=== PATIENT | female | born 1965 ===

== ENCOUNTER 2017-01-21 23:09 | Inpatient (IN) | payer MEDICAID ==
[2017-01-21] MEDS ORDERED: Lactated Ringer's 1,000 ML IV ONE (23:40)
[2017-01-21] MEDS ORDERED: Pantoprazole 80 MG in Sodium Chloride 0.9% 100 ML IV STA (23:40)
--- NOTE | 2017-01-21 23:40 | C.PDOC ---
History Of Present Illness Patient is a 51 y/o female who presents to the ED with complaints of abdominal pain and diarrhea. Patient admits to using heroin through IV, using 8 bags yesterday and a few today. Denies fever or chills. No other physical complaints at this time. Time Seen by Provider: 01/21/17 23:40 Chief Complaint (Nursing): Abdominal Pain History Per: Patient History/Exam Limitations: no limitations Current Symptoms Are (Timing): Still Present Context: Other Severity: Moderate Pain Scale Rating Of: 4 Quality Of Discomfort: Dull Associated Symptoms: Diarrhea. denies: Fever, Chills Exacerbating Factors: denies: None Alleviating Factors: denies: None Last Bowel Movement: Today Recent travel outside of the [place]: No Additional History Per: Patient Abnormal Vaginal Bleeding: No Past Medical History Reviewed: Historical Data, Nursing Documentation, Vital Signs Vital Signs: Last Vital Signs Temp 98.7 F 01/21/17 23:20 Pulse 100 H 01/21/17 23:20 Resp 18 01/21/17 23:20 BP 134/87 01/21/17 23:20 Pulse Ox 96 01/22/17 00:25 - Medical History PMH: No Chronic Diseases Surgical History: No Surg Hx Family History: States: No Known Family Hx - Social History Hx Alcohol Use: No Hx Substance Use: Yes Review Of Systems Constitutional: Negative for: Fever, Chills Cardiovascular: Negative for: Chest Pain Respiratory: Negative for: Shortness of Breath Gastrointestinal: Positive for: Abdominal Pain, Diarrhea Genitourinary: Negative for: Dysuria Musculoskeletal: Negative for: Back Pain Skin: Positive for: Rash, Other (track key) Neurological: Negative for: Weakness Psych: Negative for: Anxiety Physical Exam - Physical Exam Appears: Well, Non-toxic Skin: Normal Color, Warm, Dry, Other (track key) Head: Normacephalic Eye(s): bilateral: Normal Inspection Oral Mucosa: Moist Neck: Supple Chest: Symmetrical Cardiovascular: Rhythm Regular, No Murmur Respiratory: Normal Breath Sounds, No Rales, No Rhonchi, No Wheezing Gastrointestinal/Abdominal: Soft, Tenderness (mild), No Guarding, No Rebound Rectal: Other (little to no stool in rectal vault; some trace of BRB in rectum) Back: No CVA Tenderness Extremity: No Tenderness Extremity: Bilateral: Atraumatic Pulses: Left Dorsalis Pedis: Normal, Right Dorsalis Pedis: Normal Neurological/Psych: Oriented x3, Normal Speech, Normal Cognition Gait: Steady ED Course And Treatment - Laboratory Results Result Diagrams: 01/21/17 23:58 01/21/17 23:58 O2 Sat by Pulse Oximetry: 96 Medical Decision Making Medical Decision Making: Plan: * blood work * UA * IV fluids, Protonix Disposition Discussed With : Rosanne Alexis Comment: accepted the pt on his service and took over the care at 12:48 AM Doctor Will See Patient In The: Hospital Counseled Patient/Family Regarding: Studies Performed, Diagnosis - Disposition Disposition: HOSPITALIZED Disposition Time: 23:40 Condition: FAIR Forms: [facility] (Irish) - POA Present On Arrival: Poor Glycemic Control - Clinical Impression Clinical Impression: Abdominal pain, Nausea, Diarrhea, Lower GI bleed - Scribe Statement The provider has reviewed the documentation as recorded by the Scribe Toya Lawson All medical record entries made by the Scribe were at my direction and personally dictated by me. I have reviewed the chart and agree that the record accurately reflects my personal performance of the history, physical exam, medical decision making, and the department course for this patient. I have also personally directed, reviewed, and agree with the discharge instructions and disposition. Decision To Admit - Pt Status Changed To: Hospital Disposition Of: Inpatient - Admit Certification Admit to Inpatient:: After my assessment, the patient will require hospitalization for at least two midnights. This is because of the severity of symptoms shown, intensity of services needed, and/or the medical risk in this patient being treated as an outpatient. - InPatient: Physician Admission Certification:: After my assessment, the patient will require hospitalization for at least two midnights. This is because of the severity of symptoms shown, intensity of services needed, and/or the medical risk in this patient being treated as an outpatient. - . Bed Request Type: Regular Admitting Physician: Rosanne Alexis Patient Diagnosis: Abdominal pain, Nausea, Diarrhea, Lower GI bleed, Drug abuse
[2017-01-22 00:02] LABS: BASO % 0.6 % (0.0-2.0); EOS # 0.1 K/uL (0.0-0.7); EOS % 1.6 % (0.0-4.0); LYMPH # 2.3 K/uL (1.0-4.3); LYMPH % 35.3 % (20.0-40.0); MEAN CELL VOLUME 80.1 fL (81.0-99.0); MEAN CORPUSCULAR HEMOGLOBIN 25.7 pg (27.0-31.0); MEAN CORPUSCULAR HGB CONC 32.1 g/dL (33.0-37.0); MEAN PLATELET VOLUME 9.2 fL (7.2-11.7); MONO # 0.3 K/uL (0.0-0.8); MONO % 5.3 % (0.0-10.0); RED CELL DISTRIBUTION WIDTH 15.7 % (11.5-14.5); WHITE BLOOD COUNT 6.6 K/uL (4.8-10.8)
[2017-01-22 00:08] LABS: RBC URINE 4 /hpf (0-3); URINE BACTERIA FEW (<OCC); URINE BILIRUBIN NEGATIVE (NEGATIVE); URINE BLOOD 2+ (NEGATIVE); URINE CALCIUM OXALATE CRYSTALS MANY /hpf (<OCC); URINE COLOR Yellow (YELLOW); URINE GLUCOSE (UA) NORMAL (Normal); URINE KETONE NEGATIVE (NEGATIVE); URINE LEUKOCYTE ESTERASE 3+ Leu/uL (Negative); URINE PROTEIN 1+ mg/dL (NEGATIVE); WBC URINE 22 /hpf (0-5)
[2017-01-22 00:12] LABS: INR 1.1
[2017-01-22 00:28] LABS: ALKALINE PHOSPHATASE 103 U/L (38-126); ALT/SGPT 61 U/L (9-52); AST/SGOT 46 U/L (14-36); BILIRUBIN,TOTAL 0.3 mg/dL (0.2-1.3); BLOOD UREA NITROGEN 18 mg/dL (7-17); CALCIUM 8.5 mg/dl (8.6-10.4); CARBON DIOXIDE 26 mmol/L (22-30); CHLORIDE 103 mmol/L (98-107); GFR AFRICAN-AMERICAN > 60; GLUCOSE,RANDOM 119 mg/dL (65-105); POTASSIUM 3.4 mmol/L (3.6-5.2); SODIUM 134 mmol/L (132-148); TOTAL PROTEIN 8.6 g/dL (6.3-8.3)
[2017-01-22 00:31] LABS: ALB/GLOB RATIO 0.8 (1.0-2.1)
[2017-01-22] MEDS: Dextrose 5%/0.45% NS 1,000 ML IV SCH ×2 (01:05→12:00)
[2017-01-22 04:43] VITALS: O2SAT 98
[2017-01-22 06:20] LABS: BASO % 0.6 % (0.0-2.0); EOS # 0.1 K/uL (0.0-0.7); EOS % 2.2 % (0.0-4.0); HEMATOCRIT 37.2 % (34.0-47.0); LYMPH # 1.7 K/uL (1.0-4.3); LYMPH % 31.6 % (20.0-40.0); MEAN CELL VOLUME 80.6 fL (81.0-99.0); MEAN CORPUSCULAR HEMOGLOBIN 26.1 pg (27.0-31.0); MEAN CORPUSCULAR HGB CONC 32.3 g/dL (33.0-37.0); MEAN PLATELET VOLUME 9.4 fL (7.2-11.7); MONO # 0.4 K/uL (0.0-0.8); MONO % 8.4 % (0.0-10.0); RED CELL DISTRIBUTION WIDTH 15.1 % (11.5-14.5); WHITE BLOOD COUNT 5.4 K/uL (4.8-10.8)
[2017-01-22 06:34] LABS: ALKALINE PHOSPHATASE 84 U/L (38-126); ALT/SGPT 60 U/L (9-52); AST/SGOT 40 U/L (14-36); BILIRUBIN,TOTAL 0.6 mg/dL (0.2-1.3); BLOOD UREA NITROGEN 13 mg/dL (7-17); CARBON DIOXIDE 28 mmol/L (22-30); CHLORIDE 103 mmol/L (98-107); GFR AFRICAN-AMERICAN > 60; GLUCOSE,RANDOM 86 mg/dL (65-105); POTASSIUM 3.3 mmol/L (3.6-5.2); SODIUM 140 mmol/L (132-148); TOTAL PROTEIN 6.6 g/dL (6.3-8.3)
[2017-01-22] MEDS ORDERED: Potassium Chloride 20 mEq ER Tab PO STA (06:38)
[2017-01-22] MEDS ORDERED: Potassium Chloride 20 mEq ER Tab PO ONE (06:42)
[2017-01-22] MEDS ORDERED: Potassium Chloride 20 mEq ER Tab PO SCH (10:00)
[2017-01-22] MEDS ORDERED: Folic Acid 1 MG, Thiamine 100 MG, Multivitamin (MVI) 10 ML in Dextrose 5% In Water 1,00... IV SCH (12:00)
[2017-01-22] MEDS ORDERED: metroNIDAZOLE IV 500 mg/100 ml 500 MG/100 ML BAG ONE ×2 (12:05→18:35)
[2017-01-22] MEDS: metroNIDAZOLE IV 500 mg/100 ml 500 MG/100 ML BAG IVPB SCH ×2 (12:11→18:29)
[2017-01-22 15:57] LABS: BASO % 0.6 % (0.0-2.0); EOS # 0.1 K/uL (0.0-0.7); EOS % 1.1 % (0.0-4.0); HEMATOCRIT 38.1 % (34.0-47.0); LYMPH # 2.1 K/uL (1.0-4.3); LYMPH % 45.7 % (20.0-40.0); MEAN CELL VOLUME 80.7 fL (81.0-99.0); MEAN CORPUSCULAR HEMOGLOBIN 25.5 pg (27.0-31.0); MEAN CORPUSCULAR HGB CONC 31.6 g/dL (33.0-37.0); MEAN PLATELET VOLUME 8.8 fL (7.2-11.7); MONO # 0.4 K/uL (0.0-0.8); MONO % 8.9 % (0.0-10.0); RED CELL DISTRIBUTION WIDTH 15.7 % (11.5-14.5); WHITE BLOOD COUNT 4.6 K/uL (4.8-10.8)
--- NOTE | 2017-01-22 16:05 | CP.PCM.CON ---
<Tia Lr - Last Filed: 01/22/17 17:07> History of Present Illness - History of Present Illness History of Present Illness: Gastroenterology Fellow/PGY5 Consult Note 51 year old female with history of Polysubstance abuse presenting with abdominal pain and diarrhea. Patient notes onset of severe, progressive mid- abdominal pain for the last four days. She notes over ten episodes of watery diarrhea. She noted bright red blood per rectum with wiping after each episode of diarrhea. Admits to eating out at chicken restaurants prior to onset of pain and diarrhea and she may have exposed to food poisoning. Today he notes resolved abdominal pain, diarrhea, and bright red blood per rectum. Denies nausea, vomiting, hematemesis, heartburn, acid reflux, indigestion, bloating, constipation, melena, or hematochezia. Admits to unintentional 15 pound weight loss in the last two months that she relates to minimal nutrition intake with daily heroin use. No prior EGD or colonoscopy. Family- denies stomach cancer, colon cancer Social 10 pack year smoking history, 1-8 packs of heroin daily x 2 years, denies alcohol use Surgery- none Review of Systems - Review of Systems Review of Systems: 12-point review of systems negative except for as above Past Patient History - Past Medical History & Family History Past Medical History?: Yes - Past Social History Smoking Status: Heavy Smoker > 10 Cigarettes Daily - CARDIAC Hx Cardiac Disorders: No - PULMONARY Hx Respiratory Disorders: No - NEUROLOGICAL Hx Neurological Disorder: No - HEENT Hx HEENT Problems: No - RENAL Hx Chronic Kidney Disease: No - ENDOCRINE/METABOLIC Hx Endocrine Disorders: No - HEMATOLOGICAL/ONCOLOGICAL Hx Blood Disorders: No - INTEGUMENTARY Hx Dermatological Problems: No - MUSCULOSKELETAL/RHEUMATOLOGICAL Hx Musculoskeletal Disorders: No Hx Falls: No - GASTROINTESTINAL Hx Gastrointestinal Disorders: No - GENITOURINARY/GYNECOLOGICAL Hx Genitourinary Disorders: No - PSYCHIATRIC Hx Psychophysiologic Disorder: Yes Hx Substance Use: Yes - SURGICAL HISTORY Hx Surgeries: No - ANESTHESIA Hx Anesthesia: No Meds Allergies/Adverse Reactions: Allergies Allergy/AdvReac Type Severity Reaction Status Date / Time No Known Allergies Allergy Unverified 01/21/17 23:24 - Medications Medications: Current Medications Clonidine HCl (Catapres) 0.1 mg PO Q8H ANTONI Last Admin: 01/22/17 12:10 Dose: 0.1 mg Metronidazole (Flagyl) 500 mg in 100 mls @ 100 mls/hr IVPB BID [facility] Last Admin: 01/22/17 12:11 Dose: 100 mls/hr Folic Acid 1 mg/ Thiamine HCl 100 mg/ Multivitamins/Vitamin C 10 ml/ Dextrose 1 ,011.2 mls @ 75 mls/hr IV .[id number] [facility] Last Admin: 01/22/17 13:56 Dose: 75 mls/hr Pantoprazole Sodium (Protonix Inj) 40 mg IVP DAILY [facility] Last Admin: 01/22/17 12:10 Dose: 40 mg Physical Exam - Constitutional Appears: Non-toxic, No Acute Distress - Head Exam Head Exam: ATRAUMATIC, NORMOCEPHALIC - Eye Exam Eye Exam: EOMI, PERRL Pupil Exam: PERRL. absent: Miosis, Mydriatic - ENT Exam ENT Exam: Mucous Membranes Moist, Normal Oropharynx - Neck Exam Neck exam: Positive for: Full Rom, Normal Inspection - Respiratory Exam Respiratory Exam: Clear to Auscultation Bilateral. absent: Rales, Rhonchi, Wheezes - Cardiovascular Exam Cardiovascular Exam: RRR, +S1, +S2. absent: Gallop, Rubs - GI/Abdominal Exam GI & Abdominal Exam: Normal Bowel Sounds, Soft. absent: Distended, Firm, Guarding, Organomegaly, Rebound, Rigid, Tenderness - Rectal Exam Rectal Exam: NORMAL INSPECTION. absent: Black Stool, Bloody Stool, Hemorrhoids , Fecal Impaction Additional comments: scant brown feces in rectal vault - Extremities Exam Extremities exam: Positive for: normal inspection. Negative for: pedal edema - Neurological Exam Neurological exam: Alert - Psychiatric Exam Psychiatric exam: Normal Affect, Normal Mood - Skin Skin Exam: Dry, Intact, Normal Color, Warm Results - Vital Signs Recent Vital Signs: Last Vital Signs Temp 98 F 01/22/17 14:53 Pulse 79 01/22/17 14:53 Resp 18 01/22/17 14:53 BP 129/80 01/22/17 14:53 Pulse Ox 98 01/22/17 14:53 - Labs Result Diagrams: 01/22/17 15:52 01/22/17 06:17 Labs: Laboratory Results - last 24 hr 01/21/17 01/21/17 01/21/17 23:58 23:58 23:58 WBC 6.6 RBC 4.86 Hgb 12.5 Hct 39.0 MCV 80.1 L MCH 25.7 L MCHC 32.1 L RDW 15.7 H Plt Count 216 MPV 9.2 Neut % (Auto) 57.2 Lymph % (Auto) 35.3 [place] % (Auto) 5.3 Eos % (Auto) 1.6 Baso % (Auto) 0.6 Neut # 3.7 Lymph # 2.3 Grainger # 0.3 Eos # 0.1 Baso # 0.0 PT 12.2 INR 1.1 APTT 35 H Sodium Potassium Chloride Carbon Dioxide Anion Gap BUN Creatinine Est GFR ( Amer) Est GFR (Non-Af Amer) Random Glucose Calcium Total Bilirubin AST ALT Alkaline Phosphatase Total Protein Albumin Globulin Albumin/Globulin Ratio Urine Color Yellow Urine Clarity Hazy Urine pH 5.0 Ur Specific [place] 1.027 Urine Protein 1+ H Urine Glucose (UA) Normal Urine Ketones Negative Urine Blood 2+ H Urine Nitrate Negative Urine Bilirubin Negative Urine Urobilinogen 2.0 H Ur Leukocyte Esterase 3+ H Urine WBC (Auto) 22 H Urine RBC (Auto) 4 H Ur Squamous Epith Cells 6 H Calcium Oxalate Crystal Many H Urine Bacteria Few H Urine HCG, Qual Negative Stool Occult Blood Urine Opiates Screen Urine Methadone Screen Ur Barbiturates Screen Ur Phencyclidine Scrn Ur Amphetamines Screen U Benzodiazepines Scrn U Oth Cocaine Metabols U Cannabinoids Screen Blood Type Antibody Screen 01/21/17 01/21/17 01/21/17 23:58 23:58 23:58 WBC RBC Hgb Hct MCV MCH MCHC RDW Plt Count MPV Neut % (Auto) Lymph % (Auto) [place] % (Auto) Eos % (Auto) Baso % (Auto) Neut # Lymph # [place] # Eos # Baso # PT INR APTT Sodium 134 Potassium 3.4 L Chloride 103 Carbon Dioxide 26 Anion Gap 9 L BUN 18 H Creatinine 0.8 Est GFR ( Amer) > 60 Est GFR (Non-Af Amer) > 60 Random Glucose 119 H Calcium 8.5 L Total Bilirubin 0.3 AST 46 H ALT 61 H Alkaline Phosphatase 103 Total Protein 8.6 H Albumin 3.8 Globulin 4.8 H Albumin/Globulin Ratio 0.8 L Urine Color Urine Clarity Urine pH Ur Specific [place] Urine Protein Urine Glucose (UA) Urine Ketones Urine Blood Urine Nitrate Urine Bilirubin Urine Urobilinogen Ur Leukocyte Esterase Urine WBC (Auto) Urine RBC (Auto) Ur Squamous Epith Cells Calcium Oxalate Crystal Urine Bacteria Urine HCG, Qual Stool Occult Blood Urine Opiates Screen Positive H Urine Methadone Screen Negative Ur Barbiturates Screen Negative Ur Phencyclidine Scrn Negative Ur Amphetamines Screen Negative U Benzodiazepines Scrn Positive U Oth Cocaine Metabols Positive H U Cannabinoids Screen Negative Blood Type O POSITIVE Antibody Screen Negative 01/22/17 01/22/17 01/22/17 00:22 06:17 06:17 WBC 5.4 RBC 4.62 Hgb 12.0 Hct 37.2 MCV 80.6 L MCH 26.1 L MCHC 32.3 L RDW 15.1 H Plt Count 193 MPV 9.4 Neut % (Auto) 57.2 Lymph % (Auto) 31.6 [place] % (Auto) 8.4 Eos % (Auto) 2.2 Baso % (Auto) 0.6 Neut # 3.1 Lymph # 1.7 Grainger # 0.4 Eos # 0.1 Baso # 0.0 PT INR APTT Sodium 140 Potassium 3.3 L Chloride 103 Carbon Dioxide 28 Anion Gap 13 BUN 13 Creatinine 0.6 L Est GFR ( Amer) > 60 Est GFR (Non-Af Amer) > 60 Random Glucose 86 Calcium 8.0 L Total Bilirubin 0.6 AST 40 H ALT 60 H Alkaline Phosphatase 84 Total Protein 6.6 Albumin 3.3 L Globulin 3.3 Albumin/Globulin Ratio 1.0 Urine Color Urine Clarity Urine pH Ur Specific [place] Urine Protein Urine Glucose (UA) Urine Ketones Urine Blood Urine Nitrate Urine Bilirubin Urine Urobilinogen Ur Leukocyte Esterase Urine WBC (Auto) Urine RBC (Auto) Ur Squamous Epith Cells Calcium Oxalate Crystal Urine Bacteria Urine HCG, Qual Stool Occult Blood Positive H Urine Opiates Screen Urine Methadone Screen Ur Barbiturates Screen Ur Phencyclidine Scrn Ur Amphetamines Screen U Benzodiazepines Scrn U Oth Cocaine Metabols U Cannabinoids Screen Blood Type Antibody Screen 01/22/17 15:52 WBC 4.6 L RBC 4.71 Hgb 12.0 Hct 38.1 MCV 80.7 L MCH 25.5 L MCHC 31.6 L RDW 15.7 H Plt Count 212 MPV 8.8 Neut % (Auto) 43.7 L Lymph % (Auto) 45.7 H [place] % (Auto) 8.9 Eos % (Auto) 1.1 Baso % (Auto) 0.6 Neut # 2.0 Lymph # 2.1 Grainger # 0.4 Eos # 0.1 Baso # 0.0 PT INR APTT Sodium Potassium Chloride Carbon Dioxide Anion Gap BUN Creatinine Est GFR ( Amer) Est GFR (Non-Af Amer) Random Glucose Calcium Total Bilirubin AST ALT Alkaline Phosphatase Total Protein Albumin Globulin Albumin/Globulin Ratio Urine Color Urine Clarity Urine pH Ur Specific [place] Urine Protein Urine Glucose (UA) Urine Ketones Urine Blood Urine Nitrate Urine Bilirubin Urine Urobilinogen Ur Leukocyte Esterase Urine WBC (Auto) Urine RBC (Auto) Ur Squamous Epith Cells Calcium Oxalate Crystal Urine Bacteria Urine HCG, Qual Stool Occult Blood Urine Opiates Screen Urine Methadone Screen Ur Barbiturates Screen Ur Phencyclidine Scrn Ur Amphetamines Screen U Benzodiazepines Scrn U Oth Cocaine Metabols U Cannabinoids Screen Blood Type Antibody Screen Assessment & Plan - Assessment and Plan (Free Text) Assessment: 51 year old female with history of Polysubstance abuse presenting with abdominal pain and diarrhea. Active treatment of resolved abdominal pain and diarrhea likely 2/2 gastroenteritis. No prior EGD or colonoscopy. Plan: >likely 2/2 food poisoning >resolved symptoms >advance to regular diet >counselled on outpatient GI follow up for colonoscopy given BRBPR and unintentional weight loss for CRC screening <Kwan Ocampo - Last Filed: 01/22/17 19:01> Meds - Medications Medications: Current Medications Clonidine HCl (Catapres) 0.1 mg PO Q8H [facility] Last Admin: 01/22/17 12:10 Dose: 0.1 mg Folic Acid 1 mg/ Thiamine HCl 100 mg/ Multivitamins/Vitamin C 10 ml/ Dextrose 1 ,011.2 mls @ 75 mls/hr IV .[id number] [facility] Last Admin: 01/22/17 13:56 Dose: 75 mls/hr Metronidazole (Flagyl) 500 mg in 100 mls @ 100 mls/hr IVPB Q12H [facility] Pantoprazole Sodium (Protonix Inj) 40 mg IVP DAILY [facility] Last Admin: 01/22/17 12:10 Dose: 40 mg Results - Vital Signs Recent Vital Signs: Last Vital Signs Temp 98 F 01/22/17 14:53 Pulse 79 01/22/17 14:53 Resp 18 01/22/17 14:53 BP 129/80 01/22/17 14:53 Pulse Ox 98 11/30/17 14:53 - Labs Result Diagrams: 01/22/17 15:52 01/22/17 06:17 Labs: Laboratory Results - last 24 hr 01/21/17 01/21/17 01/21/17 23:58 23:58 23:58 WBC 6.6 RBC 4.86 Hgb 12.5 Hct 39.0 MCV 80.1 L MCH 25.7 L MCHC 32.1 L RDW 15.7 H Plt Count 216 MPV 9.2 Neut % (Auto) 57.2 Lymph % (Auto) 35.3 [place] % (Auto) 5.3 Eos % (Auto) 1.6 Baso % (Auto) 0.6 Neut # 3.7 Lymph # 2.3 [place] # 0.3 Eos # 0.1 Baso # 0.0 PT 12.2 INR 1.1 APTT 35 H Sodium Potassium Chloride Carbon Dioxide Anion Gap BUN Creatinine Est GFR ( Amer) Est GFR (Non-Af Amer) Random Glucose Calcium Total Bilirubin AST ALT Alkaline Phosphatase Total Protein Albumin Globulin Albumin/Globulin Ratio Urine Color Yellow Urine Clarity Hazy Urine pH 5.0 Ur Specific [place] 1.027 Urine Protein 1+ H Urine Glucose (UA) Normal Urine Ketones Negative Urine Blood 2+ H Urine Nitrate Negative Urine Bilirubin Negative Urine Urobilinogen 2.0 H Ur Leukocyte Esterase 3+ H Urine WBC (Auto) 22 H Urine RBC (Auto) 4 H Ur Squamous Epith Cells 6 H Calcium Oxalate Crystal Many H Urine Bacteria Few H Urine HCG, Qual Negative Stool Occult Blood Urine Opiates Screen Urine Methadone Screen Ur Barbiturates Screen Ur Phencyclidine Scrn Ur Amphetamines Screen U Benzodiazepines Scrn U Oth Cocaine Metabols U Cannabinoids Screen Blood Type Antibody Screen 01/21/17 01/21/17 01/21/17 23:58 23:58 23:58 WBC RBC Hgb Hct MCV MCH MCHC RDW Plt Count MPV Neut % (Auto) Lymph % (Auto) [place] % (Auto) Eos % (Auto) Baso % (Auto) Neut # Lymph # [place] # Eos # Baso # PT INR APTT Sodium 134 Potassium 3.4 L Chloride 103 Carbon Dioxide 26 Anion Gap 9 L BUN 18 H Creatinine 0.8 Est GFR ( Amer) > 60 Est GFR (Non-Af Amer) > 60 Random Glucose 119 H Calcium 8.5 L Total Bilirubin 0.3 AST 46 H ALT 61 H Alkaline Phosphatase 103 Total Protein 8.6 H Albumin 3.8 Globulin 4.8 H Albumin/Globulin Ratio 0.8 L Urine Color Urine Clarity Urine pH Ur Specific [place] Urine Protein Urine Glucose (UA) Urine Ketones Urine Blood Urine Nitrate Urine Bilirubin Urine Urobilinogen Ur Leukocyte Esterase Urine WBC (Auto) Urine RBC (Auto) Ur Squamous Epith Cells Calcium Oxalate Crystal Urine Bacteria Urine HCG, Qual Stool Occult Blood Urine Opiates Screen Positive H Urine Methadone Screen Negative Ur Barbiturates Screen Negative Ur Phencyclidine Scrn Negative Ur Amphetamines Screen Negative U Benzodiazepines Scrn Positive U Oth Cocaine Metabols Positive H U Cannabinoids Screen Negative Blood Type O POSITIVE Antibody Screen Negative 01/22/17 01/22/17 01/22/17 00:22 06:17 06:17 WBC 5.4 RBC 4.62 Hgb 12.0 Hct 37.2 MCV 80.6 L MCH 26.1 L MCHC 32.3 L RDW 15.1 H Plt Count 193 MPV 9.4 Neut % (Auto) 57.2 Lymph % (Auto) 31.6 [place] % (Auto) 8.4 Eos % (Auto) 2.2 Baso % (Auto) 0.6 Neut # 3.1 Lymph # 1.7 [place] # 0.4 Eos # 0.1 Baso # 0.0 PT INR APTT Sodium 140 Potassium 3.3 L Chloride 103 Carbon Dioxide 28 Anion Gap 13 BUN 13 Creatinine 0.6 L Est GFR ( Amer) > 60 Est GFR (Non-Af Amer) > 60 Random Glucose 86 Calcium 8.0 L Total Bilirubin 0.6 AST 40 H ALT 60 H Alkaline Phosphatase 84 Total Protein 6.6 Albumin 3.3 L Globulin 3.3 Albumin/Globulin Ratio 1.0 Urine Color Urine Clarity Urine pH Ur Specific [place] Urine Protein Urine Glucose (UA) Urine Ketones Urine Blood Urine Nitrate Urine Bilirubin Urine Urobilinogen Ur Leukocyte Esterase Urine WBC (Auto) Urine RBC (Auto) Ur Squamous Epith Cells Calcium Oxalate Crystal Urine Bacteria Urine HCG, Qual Stool Occult Blood Positive H Urine Opiates Screen Urine Methadone Screen Ur Barbiturates Screen Ur Phencyclidine Scrn Ur Amphetamines Screen U Benzodiazepines Scrn U Oth Cocaine Metabols U Cannabinoids Screen Blood Type Antibody Screen 01/22/17 15:52 WBC 4.6 L RBC 4.71 Hgb 12.0 Hct 38.1 MCV 80.7 L MCH 25.5 L MCHC 31.6 L RDW 15.7 H Plt Count 212 MPV 8.8 Neut % (Auto) 43.7 L Lymph % (Auto) 45.7 H [place] % (Auto) 8.9 Eos % (Auto) 1.1 Baso % (Auto) 0.6 Neut # 2.0 Lymph # 2.1 [place] # 0.4 Eos # 0.1 Baso # 0.0 PT INR APTT Sodium Potassium Chloride Carbon Dioxide Anion Gap BUN Creatinine Est GFR ( Amer) Est GFR (Non-Af Amer) Random Glucose Calcium Total Bilirubin AST ALT Alkaline Phosphatase Total Protein Albumin Globulin Albumin/Globulin Ratio Urine Color Urine Clarity Urine pH Ur Specific [place] Urine Protein Urine Glucose (UA) Urine Ketones Urine Blood Urine Nitrate Urine Bilirubin Urine Urobilinogen Ur Leukocyte Esterase Urine WBC (Auto) Urine RBC (Auto) Ur Squamous Epith Cells Calcium Oxalate Crystal Urine Bacteria Urine HCG, Qual Stool Occult Blood Urine Opiates Screen Urine Methadone Screen Ur Barbiturates Screen Ur Phencyclidine Scrn Ur Amphetamines Screen U Benzodiazepines Scrn U Oth Cocaine Metabols U Cannabinoids Screen Blood Type Antibody Screen Attending/Attestation - Attestation I have personally seen and examined this patient.: Yes I have fully participated in the care of the patient.: Yes I have reviewed all pertinent clinical information: Yes Notes (Text): 01/22/17 18:55 I have seen and examined patient with GI fellow. Agree with above documentation with the following additions. In brief, this is a 51 year old female with history of ongoing polysubstance abuse with recent heroin use who presents to hospital with complaint of abdominal pain and diarrhea over the past 4 days. She describes sharp epigastric, 4/10 intensity pain that was associated with multiple episodes of diarrhea which was initially watery and had developed rectal bleeding yesterday. Her symptoms began following consumption of chicken at restaurant. She otherwise denies nausea, vomiting, fever/chills, or change in bowel habits. She does report recent 15 pound unintentional weight loss in setting of decreased appetite. No prior endoscopic evaluation. Polysubstance abuse Abdominal pain, diarrhea - resolved Transaminitis - likely mutifactorial in setting of substance abuse - Patient tolerated PO diet this evening without any difficulty - H/H stable, no evidence of blood in rectal vault on rectal exam - Symptoms consistent with likely resolving gastroenteritis, no clear indication for antibiotic therapy, can likely discontinue - Obtain viral hepatitis panel, continue to monitor LFTs - Suggest further outpatient GI follow up with colonoscopy - Substance abuse cessation counseling - No planned GI intervention, will sign off case. Please reconsult as necessary , thank you.
--- NOTE | 2017-01-22 19:01 | CP.PCM.HP ---
Past Patient History - Past Medical History & Family History Past Medical History?: Yes - Past Social History Smoking Status: Heavy Smoker > 10 Cigarettes Daily - CARDIAC Hx Cardiac Disorders: No - PULMONARY Hx Respiratory Disorders: No - NEUROLOGICAL Hx Neurological Disorder: No - HEENT Hx HEENT Problems: No - RENAL Hx Chronic Kidney Disease: No - ENDOCRINE/METABOLIC Hx Endocrine Disorders: No - HEMATOLOGICAL/ONCOLOGICAL Hx Blood Disorders: No - INTEGUMENTARY Hx Dermatological Problems: No - MUSCULOSKELETAL/RHEUMATOLOGICAL Hx Musculoskeletal Disorders: No Hx Falls: No - GASTROINTESTINAL Hx Gastrointestinal Disorders: No - GENITOURINARY/GYNECOLOGICAL Hx Genitourinary Disorders: No - PSYCHIATRIC Hx Psychophysiologic Disorder: Yes Hx Substance Use: Yes - SURGICAL HISTORY Hx Surgeries: No - ANESTHESIA Hx Anesthesia: No Meds Allergies/Adverse Reactions: Allergies Allergy/AdvReac Type Severity Reaction Status Date / Time No Known Allergies Allergy Unverified 01/21/17 23:24 Physical Exam - Constitutional Appears: Well - Head Exam Head Exam: ATRAUMATIC, NORMAL INSPECTION, NORMOCEPHALIC - Eye Exam Eye Exam: EOMI, Normal appearance, PERRL Pupil Exam: NORMAL ACCOMODATION, PERRL - ENT Exam ENT Exam: Mucous Membranes Moist, Normal Exam - Neck Exam Neck exam: Positive for: Normal Inspection - Respiratory Exam Respiratory Exam: Decreased Breath Sounds - Cardiovascular Exam Cardiovascular Exam: REGULAR RHYTHM, +S1, +S2 - GI/Abdominal Exam GI & Abdominal Exam: Diminished Bowel Sounds, Soft - Rectal Exam Rectal Exam: Deferred Results - Vital Signs Recent Vital Signs: Last Vital Signs Temp 98 F 01/22/17 14:53 Pulse 79 01/22/17 14:53 Resp 18 01/22/17 14:53 BP 129/80 01/22/17 14:53 Pulse Ox 98 01/22/17 14:53 - Labs Result Diagrams: 01/22/17 15:52 01/22/17 06:17 Labs: Laboratory Results - last 24 hr 01/21/17 01/21/17 01/21/17 23:58 23:58 23:58 WBC 6.6 RBC 4.86 Hgb 12.5 Hct 39.0 MCV 80.1 L MCH 25.7 L MCHC 32.1 L RDW 15.7 H Plt Count 216 MPV 9.2 Neut % (Auto) 57.2 Lymph % (Auto) 35.3 [place] % (Auto) 5.3 Eos % (Auto) 1.6 Baso % (Auto) 0.6 Neut # 3.7 Lymph # 2.3 [place] # 0.3 Eos # 0.1 Baso # 0.0 PT 12.2 INR 1.1 APTT 35 H Sodium Potassium Chloride Carbon Dioxide Anion Gap BUN Creatinine Est GFR ( Amer) Est GFR (Non-Af Amer) Random Glucose Calcium Total Bilirubin AST ALT Alkaline Phosphatase Total Protein Albumin Globulin Albumin/Globulin Ratio Urine Color Yellow Urine Clarity Hazy Urine pH 5.0 Ur Specific [place] 1.027 Urine Protein 1+ H Urine Glucose (UA) Normal Urine Ketones Negative Urine Blood 2+ H Urine Nitrate Negative Urine Bilirubin Negative Urine Urobilinogen 2.0 H Ur Leukocyte Esterase 3+ H Urine WBC (Auto) 22 H Urine RBC (Auto) 4 H Ur Squamous Epith Cells 6 H Calcium Oxalate Crystal Many H Urine Bacteria Few H Urine HCG, Qual Negative Stool Occult Blood Urine Opiates Screen Urine Methadone Screen Ur Barbiturates Screen Ur Phencyclidine Scrn Ur Amphetamines Screen U Benzodiazepines Scrn U Oth Cocaine Metabols U Cannabinoids Screen Blood Type Antibody Screen 01/21/17 01/21/17 01/21/17 23:58 23:58 23:58 WBC RBC Hgb Hct MCV MCH MCHC RDW Plt Count MPV Neut % (Auto) Lymph % (Auto) [place] % (Auto) Eos % (Auto) Baso % (Auto) Neut # Lymph # [place] # Eos # Baso # PT INR APTT Sodium 134 Potassium 3.4 L Chloride 103 Carbon Dioxide 26 Anion Gap 9 L BUN 18 H Creatinine 0.8 Est GFR ( Amer) > 60 Est GFR (Non-Af Amer) > 60 Random Glucose 119 H Calcium 8.5 L Total Bilirubin 0.3 AST 46 H ALT 61 H Alkaline Phosphatase 103 Total Protein 8.6 H Albumin 3.8 Globulin 4.8 H Albumin/Globulin Ratio 0.8 L Urine Color Urine Clarity Urine pH Ur Specific [place] Urine Protein Urine Glucose (UA) Urine Ketones Urine Blood Urine Nitrate Urine Bilirubin Urine Urobilinogen Ur Leukocyte Esterase Urine WBC (Auto) Urine RBC (Auto) Ur Squamous Epith Cells Calcium Oxalate Crystal Urine Bacteria Urine HCG, Qual Stool Occult Blood Urine Opiates Screen Positive H Urine Methadone Screen Negative Ur Barbiturates Screen Negative Ur Phencyclidine Scrn Negative Ur Amphetamines Screen Negative U Benzodiazepines Scrn Positive U Oth Cocaine Metabols Positive H U Cannabinoids Screen Negative Blood Type O POSITIVE Antibody Screen Negative 01/22/17 01/22/17 01/22/17 00:22 06:17 06:17 WBC 5.4 RBC 4.62 Hgb 12.0 Hct 37.2 MCV 80.6 L MCH 26.1 L MCHC 32.3 L RDW 15.1 H Plt Count 193 MPV 9.4 Neut % (Auto) 57.2 Lymph % (Auto) 31.6 [place] % (Auto) 8.4 Eos % (Auto) 2.2 Baso % (Auto) 0.6 Neut # 3.1 Lymph # 1.7 [place] # 0.4 Eos # 0.1 Baso # 0.0 PT INR APTT Sodium 140 Potassium 3.3 L Chloride 103 Carbon Dioxide 28 Anion Gap 13 BUN 13 Creatinine 0.6 L Est GFR ( Amer) > 60 Est GFR (Non-Af Amer) > 60 Random Glucose 86 Calcium 8.0 L Total Bilirubin 0.6 AST 40 H ALT 60 H Alkaline Phosphatase 84 Total Protein 6.6 Albumin 3.3 L Globulin 3.3 Albumin/Globulin Ratio 1.0 Urine Color Urine Clarity Urine pH Ur Specific [place] Urine Protein Urine Glucose (UA) Urine Ketones Urine Blood Urine Nitrate Urine Bilirubin Urine Urobilinogen Ur Leukocyte Esterase Urine WBC (Auto) Urine RBC (Auto) Ur Squamous Epith Cells Calcium Oxalate Crystal Urine Bacteria Urine HCG, Qual Stool Occult Blood Positive H Urine Opiates Screen Urine Methadone Screen Ur Barbiturates Screen Ur Phencyclidine Scrn Ur Amphetamines Screen U Benzodiazepines Scrn U Oth Cocaine Metabols U Cannabinoids Screen Blood Type Antibody Screen 01/22/17 15:52 WBC 4.6 L RBC 4.71 Hgb 12.0 Hct 38.1 MCV 80.7 L MCH 25.5 L MCHC 31.6 L RDW 15.7 H Plt Count 212 MPV 8.8 Neut % (Auto) 43.7 L Lymph % (Auto) 45.7 H [place] % (Auto) 8.9 Eos % (Auto) 1.1 Baso % (Auto) 0.6 Neut # 2.0 Lymph # 2.1 [place] # 0.4 Eos # 0.1 Baso # 0.0 PT INR APTT Sodium Potassium Chloride Carbon Dioxide Anion Gap BUN Creatinine Est GFR ( Amer) Est GFR (Non-Af Amer) Random Glucose Calcium Total Bilirubin AST ALT Alkaline Phosphatase Total Protein Albumin Globulin Albumin/Globulin Ratio Urine Color Urine Clarity Urine pH Ur Specific [place] Urine Protein Urine Glucose (UA) Urine Ketones Urine Blood Urine Nitrate Urine Bilirubin Urine Urobilinogen Ur Leukocyte Esterase Urine WBC (Auto) Urine RBC (Auto) Ur Squamous Epith Cells Calcium Oxalate Crystal Urine Bacteria Urine HCG, Qual Stool Occult Blood Urine Opiates Screen Urine Methadone Screen Ur Barbiturates Screen Ur Phencyclidine Scrn Ur Amphetamines Screen U Benzodiazepines Scrn U Oth Cocaine Metabols U Cannabinoids Screen Blood Type Antibody Screen
[2017-01-23 01:44] VITALS: RESP 20
[2017-01-23] MEDS: Potassium Chloride 20 mEq/15 ml LIQ UD PO SCH ×2 (02:30→06:00)
[2017-01-23] MEDS: metroNIDAZOLE IV 500 mg/100 ml 500 MG/100 ML BAG IVPB SCH ×2 (06:17→19:06)
[2017-01-23] MEDS: HYDROmorphone 1 mg/ml ISec IVP PRN ×2 (12:05→19:08)
[2017-01-23] MEDS ORDERED: Folic Acid 1 MG, Thiamine 100 MG, Multivitamin (MVI) 10 ML in Dextrose 5% In Water 1,00... IV SCH (14:00)
[2017-01-23] MEDS ORDERED: Potassium Chloride 10 mEq ER Tab PO STA (19:02)
--- NOTE | 2017-01-23 19:55 | CP.PCM.PN ---
Subjective - Date & Time of Evaluation Date of Evaluation: 01/23/17 Time of Evaluation: 08:20 - Subjective Subjective: clinically same Objective - Vital Signs/Intake and Output Vital Signs (last 24 hours): Temp Pulse Resp BP Pulse Ox 98.2 F 89 20 115/79 98 01/23/17 15:00 01/23/17 15:00 01/23/17 15:00 01/23/17 15:00 01/23/17 15:00 Intake and Output: 01/23/17 01/24/17 18:59 06:59 Intake Total 1100 Balance 1100 - Medications Medications: Current Medications Clonidine HCl (Catapres) 0.1 mg PO Q8H [facility] Last Admin: 01/23/17 19:15 Dose: 0.1 mg Hydromorphone HCl (Dilaudid) 1 mg IVP Q8 PRN PRN Reason: Pain, moderate (4-7) Last Admin: 01/23/17 19:08 Dose: 1 mg Metronidazole (Flagyl) 500 mg in 100 mls @ 100 mls/hr IVPB Q12H [facility] Last Admin: 01/23/17 19:06 Dose: 100 mls/hr Folic Acid 1 mg/ Thiamine HCl 100 mg/ Multivitamins/Vitamin C 10 ml/ Dextrose 1 ,011.2 mls @ 75 mls/hr IV DAILY@1400 [facility] Last Admin: 01/23/17 13:30 Dose: 75 mls/hr Pantoprazole Sodium (Protonix Inj) 40 mg IVP DAILY [facility] Last Admin: 01/23/17 10:58 Dose: 40 mg - Labs Labs: 01/22/17 15:52 01/22/17 06:17 PT 12.2 SECONDS (9.7-12.2) 01/21/17 23:58 INR 1.1 01/21/17 23:58 APTT 35 SECONDS (21-34) H 01/21/17 23:58 - Constitutional Appears: Well - Head Exam Head Exam: ATRAUMATIC, NORMAL INSPECTION, NORMOCEPHALIC - Eye Exam Eye Exam: EOMI, Normal appearance, PERRL Pupil Exam: NORMAL ACCOMODATION, PERRL - ENT Exam ENT Exam: Mucous Membranes Moist, Normal Exam - Neck Exam Neck Exam: Full ROM, Normal Inspection. absent: Lymphadenopathy - Respiratory Exam Respiratory Exam: Decreased Breath Sounds - Cardiovascular Exam Cardiovascular Exam: REGULAR RHYTHM, +S1, +S2 - GI/Abdominal Exam GI & Abdominal Exam: Soft, Diminished Bowel Sounds - Rectal Exam Rectal Exam: Deferred
[2017-01-24] MEDS: HYDROmorphone 1 mg/ml ISec IVP PRN (02:24)
[2017-01-24] MEDS: metroNIDAZOLE IV 500 mg/100 ml 500 MG/100 ML BAG IVPB SCH (05:24)
[2017-01-24 06:49] LABS: BASO % 0.3 % (0.0-2.0); EOS # 0.1 K/uL (0.0-0.7); EOS % 1.5 % (0.0-4.0); LYMPH # 2.6 K/uL (1.0-4.3); LYMPH % 54.8 % (20.0-40.0); MEAN CELL VOLUME 80.3 fL (81.0-99.0); MEAN CORPUSCULAR HEMOGLOBIN 25.9 pg (27.0-31.0); MEAN CORPUSCULAR HGB CONC 32.3 g/dL (33.0-37.0); MEAN PLATELET VOLUME 8.9 fL (7.2-11.7); MONO # 0.4 K/uL (0.0-0.8); MONO % 8.3 % (0.0-10.0); NRBC % 0.1 % (0.0-2.0); RED CELL DISTRIBUTION WIDTH 15.7 % (11.5-14.5); WHITE BLOOD COUNT 4.7 K/uL (4.8-10.8)
[2017-01-24 06:55] LABS: BLOOD UREA NITROGEN 12 mg/dL (7-17); CALCIUM 8.1 mg/dl (8.6-10.4); CARBON DIOXIDE 27 mmol/L (22-30); CHLORIDE 108 mmol/L (98-107); GFR AFRICAN-AMERICAN > 60; GLUCOSE,RANDOM 109 mg/dL (65-105); POTASSIUM 3.7 mmol/L (3.6-5.2); SODIUM 140 mmol/L (132-148)
[2017-01-24 09:59] VITALS: BP 104/74; PULSE 78; TEMP 98.1
== END 2017-01-24 12:52 | disposition left against medical advice (07) | DRG 813 ==
LOC: C.ER 23:09 → C.9E 01-22 00:47 → C.3T 01-22 22:50
PROVIDERS: ADMIT Internal Medicine Nephrology; ATTEND Internal Medicine Nephrology
DX: K52.9 Noninfective gastroenteritis and colitis, unspecified (principal); F11.10 Opioid abuse, uncomplicated; F17.210 Nicotine dependence, cigarettes, uncomplicated

== ENCOUNTER 2017-05-18 12:07 | Emergency (ER) | payer MEDICAID ==
[2017-05-18 12:21] VITALS: TEMP 98; O2SAT 100
--- NOTE | 2017-05-18 13:09 | C.PDOC ---
History Of Present Illness 51-year-old female, presents to the emergency department requesting detox from heroin and alcohol. Patient states she last used two days ago. Denies any HI/SI at this time. Time Seen by Provider: 05/18/17 12:36 Chief Complaint (Nursing): Substance Abuse History Per: Patient History/Exam Limitations: no limitations Past Medical History Reviewed: Historical Data, Nursing Documentation, Vital Signs Vital Signs: Last Vital Signs Temp 98 F 05/18/17 12:18 Pulse 110 H 05/18/17 12:18 Resp 18 05/18/17 12:18 BP 162/121 H 05/18/17 12:18 Pulse Ox 100 05/18/17 13:09 - Medical History PMH: Denies: Diabetes, Hepatitis, HIV, HTN, Chronic Kidney Disease, Seizures, Sexually Transmitted Disease Family History: States: No Known Family Hx - Social History Hx Alcohol Use: Yes Hx Substance Use: Yes (IV drug user) - Immunization History Hx Tetanus Toxoid Vaccination: No Hx Influenza Vaccination: No Hx Pneumococcal Vaccination: No Review Of Systems Constitutional: Negative for: Fever Cardiovascular: Negative for: Chest Pain Respiratory: Negative for: Shortness of Breath Psych: Negative for: Psychosis, Suicidal ideation, Withdrawal Physical Exam - Physical Exam Appears: Non-toxic, No Acute Distress (Calm, cooperative. No signs or symptoms indicative of withdrawal.) Skin: Warm, Dry, No Rash Head: Normacephalic Eye(s): bilateral: PERRL Neck: Normal ROM Cardiovascular: Rhythm Regular, No Murmur Respiratory: Normal Breath Sounds, No Accessory Muscle Use Gastrointestinal/Abdominal: Soft, No Tenderness Extremity: Normal ROM, No Deformity, No Swelling Neurological/Psych: Oriented x3, Normal Speech ED Course And Treatment O2 Sat by Pulse Oximetry: 100 Medical Decision Making Medical Decision Making: Impression 51y/o F comes in requesting detox Plan * Catapres * Reassess and Disposition Case discussed with crisis. No detox beds available at this time. Patient will be discharged and instructed to f/u with detox coordinator and prescreening process. All questions answered. Disposition Counseled Patient/Family Regarding: Diagnosis - Disposition Referrals: [facility] at [facility] [Outside] Disposition: HOME/ ROUTINE Disposition Time: 13:08 Condition: STABLE Additional Instructions: follow up with medical clinic in 2 days call to make an appointment return to ER if symptoms worsens or progress Instructions: Drug Abuse Treatment, Polysubstance Abuse (DC) Forms: [facility] (Croatian), General Discharge Instructions - Clinical Impression Clinical Impression: Drug abuse - Scribe Statement The provider has reviewed the documentation as recorded by the Scribe (Inga Shaw) All medical record entries made by the Scribe were at my direction and personally dictated by me. I have reviewed the chart and agree that the record accurately reflects my personal performance of the history, physical exam, medical decision making, and the department course for this patient. I have also personally directed, reviewed, and agree with the discharge instructions and disposition.
[2017-05-18 13:53] VITALS: BP 135/78; PULSE 113; RESP 16
== END 2017-05-18 13:53 | disposition home or self-care (01) ==
LOC: C.ER 12:07
DX: F11.10 Opioid abuse, uncomplicated (principal)

== ENCOUNTER 2017-07-08 13:23 | Inpatient (IN) | payer MEDICAID ==
[2017-07-08 13:29] VITALS: BMI 19.8
[2017-07-08 14:11] LABS: HCG,QUALITATIVE URINE NEGATIVE (NEGATIVE)
[2017-07-08 14:15] LABS: SQUAMOUS EPITHIAL 10 /hpf (0-5); URINE BACTERIA RARE (<OCC); URINE BILIRUBIN NEGATIVE (NEGATIVE); URINE BLOOD NEGATIVE (NEGATIVE); URINE CLARITY Hazy (Clear); URINE COLOR Yellow (YELLOW); URINE GLUCOSE (UA) NORMAL (Normal); URINE LEUKOCYTE ESTERASE 3+ Leu/uL (Negative); URINE PROTEIN NEGATIVE (NEGATIVE); URINE UROBILINOGEN NORMAL mg/dL (0.2-1.0)
[2017-07-08 14:19] LABS: BASO % 0.2 % (0.0-2.0); HEMOGLOBIN 10.5 g/dL (11.0-16.0); LYMPH # 0.5 K/uL (1.0-4.3); LYMPH % 2.7 % (20.0-40.0); MEAN CELL VOLUME 81.6 fL (81.0-99.0); MEAN CORPUSCULAR HEMOGLOBIN 26.5 pg (27.0-31.0); MEAN CORPUSCULAR HGB CONC 32.5 g/dL (33.0-37.0); MONO # 0.3 K/uL (0.0-0.8); MONO % 1.8 % (0.0-10.0); NEUT # 16.5 K/uL (1.8-7.0); NEUT % 95.3 % (50.0-75.0); PLATELET COUNT 200 K/uL (130-400); RBC 3.97 Mil/uL (3.80-5.20); RED CELL DISTRIBUTION WIDTH 14.6 % (11.5-14.5); WHITE BLOOD COUNT 17.3 K/uL (4.8-10.8)
[2017-07-08] MEDS ORDERED: cefOXitin IV 2 gm in Dextrose 2 GM/50 ML BAG IVPB ONE (14:26)
[2017-07-08 14:38] LABS: ALB/GLOB RATIO 0.9 (1.0-2.1); ALBUMIN 3.3 g/dL (3.5-5.0); ALT/SGPT 23 U/L (9-52); AST/SGOT 40 U/L (14-36); BLOOD UREA NITROGEN 20 mg/dL (7-17); CALCIUM 8.5 mg/dl (8.6-10.4); GFR AFRICAN-AMERICAN > 60; GFR NON-AFRICAN AMERICAN 52
[2017-07-08 14:47] LABS: BARBITURATES, UR NEGATIVE (NEGATIVE); BENZODIAZEPINES, UR NEGATIVE (NEGATIVE); PHENCYCLIDINE, UR NEGATIVE (NEGATIVE)
[2017-07-08 14:48] LABS: BANDS 20 % (0-2); BASOPHIL 1 % (0-2); HYPOCHROMIC SLIGHT; LYMPHOCYTE 3 % (20-40); MONOCYTE 2 % (0-10); NEUTROPHIL 74 % (50-75); PLATELET ESTIMATE NORMAL (NORMAL); TOTAL CELLS COUNTED 100
[2017-07-08] MEDS ORDERED: Sodium Chloride 0.9% 1,000 ML IV ONE ×2 (14:52)
[2017-07-08 15:07] LABS: OPIATES, UR POSITIVE (NEGATIVE)
[2017-07-08 15:30] LABS: VENOUS BLOOD GAS PCO2 45 mmHg (40-60); VENOUS BLOOD GAS PO2 54 mm/Hg (30-55); VENOUS BLOOD PH 7.42 (7.32-7.43)
[2017-07-08] MEDS ORDERED: cefOXitin 2 GM in Sodium Chloride 0.9% 50 ML IV ONE (15:30)
[2017-07-08] MEDS ORDERED: Potassium Chloride 20 mEq ER Tab PO STA (16:06)
[2017-07-08] MEDS ORDERED: Potassium Chloride 20 mEq ER Tab PO ONE (16:15)
--- NOTE | 2017-07-08 16:47 | RAD ---
HISTORY: medical clearance COMPARISON: No prior. FINDINGS: LUNGS: No active pulmonary disease. PLEURA: No significant pleural effusion identified, no pneumothorax apparent. CARDIOVASCULAR: Normal. OSSEOUS STRUCTURES: No significant abnormalities. VISUALIZED UPPER ABDOMEN: Normal. OTHER FINDINGS: None. IMPRESSION: No active disease.
--- NOTE | 2017-07-08 17:01 | C.PDOC ---
History Of Present Illness 51-year-old female, presents to the emergency department with complaints of suicidal ideation. 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 She also reports some vaginal discharge that is yellow in color. States she wanted to walk in front of a car and kill herself. She denies any nausea/vomiting, fever or chills. Patient has a Hx of STD's. Of note, patient complaining of swelling to left ankle from an old injury. Time Seen by Provider: 07/08/17 13:26 Chief Complaint (Nursing): Psychiatric Evaluation History Per: Patient History/Exam Limitations: no limitations Past Medical History Reviewed: Historical Data, Nursing Documentation, Vital Signs Vital Signs: Last Vital Signs Temp 99.1 F 07/08/17 13:29 Pulse 79 07/08/17 16:19 Resp 14 07/08/17 16:19 BP 110/68 07/08/17 16:19 Pulse Ox 99 07/08/17 17:06 - Medical History PMH: Anxiety, Bipolar Disorder Denies: Diabetes, Hepatitis, HIV, HTN, Chronic Kidney Disease, Seizures, Sexually Transmitted Disease Family History: States: No Known Family Hx - Social History Hx Alcohol Use: Yes Hx Substance Use: Yes (IV drug user) - Immunization History Hx Tetanus Toxoid Vaccination: No Hx Influenza Vaccination: No Hx Pneumococcal Vaccination: No Review Of Systems Constitutional: Negative for: Fever, Chills Cardiovascular: Negative for: Chest Pain, Palpitations Respiratory: Negative for: Shortness of Breath Gastrointestinal: Negative for: Nausea, Vomiting Genitourinary: Positive for: Vaginal Discharge, Pelvic Pain Musculoskeletal: Negative for: Foot Pain Neurological: Negative for: Weakness, Numbness, Headache, Dizziness Physical Exam - Physical Exam Appears: Non-toxic, No Acute Distress Skin: Normal Color, Warm, Dry, No Rash Head: Normacephalic Eye(s): bilateral: PERRL Nose: Normal Oral Mucosa: Moist Lips: Normal Appearing Neck: Normal ROM Chest: Symmetrical Cardiovascular: Rhythm Regular, No Murmur Respiratory: Normal Breath Sounds, No Accessory Muscle Use Gastrointestinal/Abdominal: Soft, No Tenderness, No Guarding, No Rebound Pelvic: No Vaginal Bleeding, Vaginal Discharge, Cervical Motion Tenderness, No Adnexal Tenderness, No Mass, Tender Uterus, Other (foul smelling discharge, mild CMT (Pt is altered/intox), mild uterine tenderness to palpation) Extremity: Normal ROM, No Deformity, No Swelling, Other (left ankle, chronic changes from surgery) Neurological/Psych: Oriented x3, Normal Speech ED Course And Treatment - Laboratory Results Result Diagrams: 07/08/17 14:15 07/08/17 14:15 Lab Interpretation: Abnormal (WBC 17.3 with 20 bands) Urine POC: Negative O2 Sat by Pulse Oximetry: 99 (RA) Pulse Ox Interpretation: Normal - Radiology CXR: Viewed By Me, Read By Radiologist CXR Interpretation: Yes: No Acute Disease Progress Note: Bloodwork, cultures and UA ordered and reviewed. Patient treatedwith IVFs, Cefoxitin, Doxycycline, K-Chloride. Used needle found in patients bed, she appears to be lethargic, changed from time of initial exam. Concern for active use in ED. Reevaluation Time: 17:25 Reassessment Condition: Unchanged - Physician Consult Information Physician Contacted: Candido Vicente Outcome Of Conversation: Patient to be admitted for treatment of PID. Psychiatric evaluation requested. Disposition - Disposition Disposition: HOSPITALIZED Disposition Time: 17:26 Condition: STABLE - POA Present On Arrival: None - Clinical Impression Clinical Impression: Polysubstance abuse, PID (acute pelvic inflammatory disease), Suicidal ideation - Scribe Statement The provider has reviewed the documentation as recorded by the Scribe (Inga Shaw) All medical record entries made by the Scribe were at my direction and personally dictated by me. I have reviewed the chart and agree that the record accurately reflects my personal performance of the history, physical exam, medical decision making, and the department course for this patient. I have also personally directed, reviewed, and agree with the discharge instructions and disposition.
[2017-07-08] MEDS: Sodium Chloride 0.9% 1,000 ML IV SCH (17:32)
[2017-07-08] MEDS ORDERED: cefOXitin IV 2 gm in Dextrose 2 GM/50 ML BAG IVPB SCH (18:00)
[2017-07-09] MEDS: cefOXitin 2 GM in Sodium Chloride 0.9% 100 ML IVPB SCH ×3 (00:48→15:56)
[2017-07-09] MEDS: Sodium Chloride 0.9% 1,000 ML IV SCH ×3 (04:19→12:28)
--- NOTE | 2017-07-09 08:26 | CP.PCM.HP ---
History of Present Illness - History of Present Illness History of Present Illness: CC: suicidal ideation, substance abuse History Of Present Illness 51-year-old female, presents to the emergency department with complaints of suicidal ideation. 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 She also reports some vaginal discharge that is yellow in color. States she wanted to walk in front of a car and kill herself. She denies any nausea/vomiting, fever or chills. Patient has a Hx of STD's. Of note, patient complaining of swelling to left ankle from an old injury. Present on Admission - Present on Admission Any Indicators Present on Admission: Yes Review of Systems - Review of Systems Systems not reviewed;Unavailable: Acuity of Condition - Constitutional Constitutional: Fatigue, Lethargy, Malaise - EENT Eyes: absent: As Per HPI, Blind Spots, Blurred Vision, Change in Vision, Decreased Night Vision, Diplopia, Discharge, Dry Eye, Exophthalmos, Floaters, Irritation, Itchy Eyes, Loss of Peripheral Vision, Pain, Photophobia, Requires Corrective Lenses, Sees Flashes, Spots in Vision, Tunnel Vision, Other Visual Disturbances, Loss of Vision, Other - Cardiovascular Cardiovascular: absent: As Per HPI, Acrocyanosis, Chest Pain, Chest Pain at Rest , Chest Pain with Activity, Claudication, Diaphoresis, Dyspnea, Dyspnea on Exertion, Edema, Irregular Heart Rhythm, Pain Radiating to Arm/Neck/Jaw, Leg Edema, Leg Ulcers, Lightheadedness, Orthopnea, Palpitations, Paroxysmal Nocturnal Dyspnea, Pedal Edema, Radiating Pain, Rapid Heart Rate, Slow Heart Rate, Syncope, Other - Gastrointestinal Gastrointestinal: absent: As Per HPI, Abdominal Pain, Belching, Bloating, Change in Bowel Habits, Change in Stool Character, Coffee Ground Emesis, Constipation, Cramping, Diarrhea, Dyspepsia, Dysphagia, Early Satiety, Excessive Flatus, Fecal Incontinence, Heartburn, Hematemesis, Hematochezia, Loose Stools, Melena, Nausea, Odynophagia, Temesmus, Vomiting, Other - Genitourinary Genitourinary: Dysuria, Flank Pain, Pyuria - Menstruation Menstruation: absent: As Per HPI, Amenorrhea, Amenorrhea/ Control, Currently Menstual, Cycle <21 Days, Cycle >35 Days, Cycle Variable, Menses 1-7 Days, Menses >/= 8 Days, Menses Variable, Cycle > 4 Weeks Between, No Menses for 6 Months, Heavy Menses, Light Menses, Normal Menses, Spotting Between Cycles , S/P Hysterectomy, Menopausal, Post Menopausal, Premenarche, Abnormal Vaginal Bleeding, Dysmenorrhea, Other - Musculoskeletal Musculoskeletal: absent: As Per HPI, Abnormal Gait, Arthralgias, Atrophy, Back Pain, Deformity, Joint Swelling, Limited Range of Motion, Loss of Height, Muscle Cramps, Muscle Weakness, Myalgias, Neck Pain, Numbness, Radiating Pain into Limb, Stiffness, Tingling, Other - Integumentary Integumentary: absent: As Per HPI, Acne, Alopecia, Bleeding Lesions, Change in Hair, Change in Nails, Change in Pigmentation, Changing Lesions, Dry Skin, Erythema, Furuncle, Hirsutism, Lesions, New Lesions, Non-Healing Lesions, Photosensitivity, Pruritus, Rash, Skin Pain, Skin Ulcer, Sores, Striae, Swelling , Unusual Bruising, Wounds, Jaundice, Other Past Patient History - Infectious Disease Hx of Infectious Diseases: None - Past Medical History & Family History Past Medical History?: Yes - Past Social History Smoking Status: Heavy Smoker > 10 Cigarettes Daily - CARDIAC Hx Hypertension: No - PULMONARY Hx Tuberculosis: No - NEUROLOGICAL Hx Seizures: No - HEENT Hx HEENT Problems: No - RENAL Hx Chronic Kidney Disease: No - ENDOCRINE/METABOLIC Hx Endocrine Disorders: No - HEMATOLOGICAL/ONCOLOGICAL Hx Human Immunodeficiency Virus (HIV): No - INTEGUMENTARY Hx Dermatological Problems: No - MUSCULOSKELETAL/RHEUMATOLOGICAL Hx Falls: No - GASTROINTESTINAL Hx Gastrointestinal Disorders: No - GENITOURINARY/GYNECOLOGICAL Hx Sexually Transmitted Disorders: No - PSYCHIATRIC Hx Substance Use: Yes (opiates,cocaine) - SURGICAL HISTORY Hx Surgeries: Yes Hx Orthopedic Surgery: Yes (left ankle) - ANESTHESIA Hx Anesthesia: No Hx Anesthesia Reactions: No Hx Malignant Hyperthermia: No Has any member of the family had a problem w/ anesthesia?: No Meds Allergies/Adverse Reactions: Allergies Allergy/AdvReac Type Severity Reaction Status Date / Time No Known Allergies Allergy Verified 07/08/17 14:05 Physical Exam - Constitutional Appears: No Acute Distress - Head Exam Head Exam: ATRAUMATIC, NORMAL INSPECTION, NORMOCEPHALIC - Eye Exam Eye Exam: EOMI, Normal appearance, PERRL Pupil Exam: NORMAL ACCOMODATION, PERRL - Respiratory Exam Respiratory Exam: Clear to Auscultation Bilateral, NORMAL BREATHING PATTERN - Cardiovascular Exam Cardiovascular Exam: REGULAR RHYTHM, +S1, +S2 - GI/Abdominal Exam GI & Abdominal Exam: Normal Bowel Sounds, Soft. absent: Tenderness - Rectal Exam Rectal Exam: Deferred Results - Vital Signs Recent Vital Signs: Last Vital Signs Temp 98.4 F 07/09/17 00:00 Pulse 72 07/09/17 00:00 Resp 20 07/09/17 00:00 BP 115/75 07/09/17 00:00 Pulse Ox 99 07/09/17 00:00 - Labs Result Diagrams: 07/09/17 11:47 07/09/17 11:47 Labs: Laboratory Results - last 24 hr 07/08/17 07/08/17 07/08/17 13:54 13:54 14:15 WBC 17.3 H D RBC 3.97 Hgb 10.5 L Hct 32.4 L MCV 81.6 MCH 26.5 L MCHC 32.5 L RDW 14.6 H Plt Count 200 MPV 9.0 Neut % (Auto) 95.3 H Lymph % (Auto) 2.7 L [place] % (Auto) 1.8 Eos % (Auto) 0.0 Baso % (Auto) 0.2 Neut # (Auto) 16.5 H Lymph # (Auto) 0.5 L [place] # (Auto) 0.3 Eos # (Auto) 0.0 Baso # (Auto) 0.0 Neutrophils % (Manual) 74 Band Neutrophils % 20 H* Lymphocytes % (Manual) 3 L Monocytes % (Manual) 2 Basophils % (Manual) 1 Platelet Estimate Normal Hypochromasia (manual) Slight pO2 VBG pH VBG pCO2 VBG HCO3 VBG Total CO2 VBG O2 Sat (Calc) VBG Base Excess VBG Potassium Glucose Lactate FiO2 Sodium Potassium Chloride Carbon Dioxide Anion Gap BUN Creatinine Est GFR ( Amer) Est GFR (Non-Af Amer) Random Glucose Calcium Total Bilirubin AST ALT Alkaline Phosphatase Total Protein Albumin Globulin Albumin/Globulin Ratio Venous Blood Potassium Urine Color Yellow Urine Clarity Hazy Urine pH 5.0 Ur Specific [place] 1.023 Urine Protein Negative Urine Glucose (UA) Normal Urine Ketones Negative Urine Blood Negative Urine Nitrate Negative Urine Bilirubin Negative Urine Urobilinogen Normal Ur Leukocyte Esterase 3+ H Urine WBC (Auto) 14 H Urine RBC (Auto) 7 H Ur Squamous Epith Cells 10 H Urine Bacteria Rare Urine HCG, Qual Negative Urine Opiates Screen Positive H Urine Methadone Screen Negative Ur Barbiturates Screen Negative Ur Phencyclidine Scrn Negative Ur Amphetamines Screen Negative U Benzodiazepines Scrn Negative U Oth Cocaine Metabols Positive H U Cannabinoids Screen Negative Alcohol, Quantitative RPR HIV 1&2 Antibody Screen 07/08/17 07/08/17 07/08/17 14:15 14:53 14:53 WBC RBC Hgb Hct MCV MCH MCHC RDW Plt Count MPV Neut % (Auto) Lymph % (Auto) [place] % (Auto) Eos % (Auto) Baso % (Auto) Neut # (Auto) Lymph # (Auto) [place] # (Auto) Eos # (Auto) Baso # (Auto) Neutrophils % (Manual) Band Neutrophils % Lymphocytes % (Manual) Monocytes % (Manual) Basophils % (Manual) Platelet Estimate Hypochromasia (manual) pO2 VBG pH VBG pCO2 VBG HCO3 VBG Total CO2 VBG O2 Sat (Calc) VBG Base Excess VBG Potassium Glucose Lactate FiO2 Sodium 142 Potassium 3.0 L Chloride 101 Carbon Dioxide 27 Anion Gap 17 BUN 20 H Creatinine 1.1 Est GFR ( Amer) > 60 Est GFR (Non-Af Amer) 52 Random Glucose 144 H Calcium 8.5 L Total Bilirubin 0.5 AST 40 H ALT 23 Alkaline Phosphatase 85 Total Protein 6.8 Albumin 3.3 L Globulin 3.5 Albumin/Globulin Ratio 0.9 L Venous Blood Potassium Urine Color Urine Clarity Urine pH Ur Specific [place] Urine Protein Urine Glucose (UA) Urine Ketones Urine Blood Urine Nitrate Urine Bilirubin Urine Urobilinogen Ur Leukocyte Esterase Urine WBC (Auto) Urine RBC (Auto) Ur Squamous Epith Cells Urine Bacteria Urine HCG, Qual Urine Opiates Screen Urine Methadone Screen Ur Barbiturates Screen Ur Phencyclidine Scrn Ur Amphetamines Screen U Benzodiazepines Scrn U Oth Cocaine Metabols U Cannabinoids Screen Alcohol, Quantitative < 10 RPR Nonreactive HIV 1&2 Antibody Screen Negative 07/08/17 15:25 WBC RBC Hgb Hct MCV MCH MCHC RDW Plt Count MPV Neut % (Auto) Lymph % (Auto) [place] % (Auto) Eos % (Auto) Baso % (Auto) Neut # (Auto) Lymph # (Auto) [place] # (Auto) Eos # (Auto) Baso # (Auto) Neutrophils % (Manual) Band Neutrophils % Lymphocytes % (Manual) Monocytes % (Manual) Basophils % (Manual) Platelet Estimate Hypochromasia (manual) pO2 54 VBG pH 7.42 VBG pCO2 45 VBG HCO3 27.8 VBG Total CO2 30.6 H VBG O2 Sat (Calc) 93.6 H VBG Base Excess 4.0 H VBG Potassium 2.8 L Glucose 143 H Lactate 1.9 FiO2 21.0 Sodium 140.0 Potassium Chloride 104.0 Carbon Dioxide Anion Gap BUN Creatinine Est GFR ( Amer) Est GFR (Non-Af Amer) Random Glucose Calcium Total Bilirubin AST ALT Alkaline Phosphatase Total Protein Albumin Globulin Albumin/Globulin Ratio Venous Blood Potassium 2.8 L Urine Color Urine Clarity Urine pH Ur Specific [place] Urine Protein Urine Glucose (UA) Urine Ketones Urine Blood Urine Nitrate Urine Bilirubin Urine Urobilinogen Ur Leukocyte Esterase Urine WBC (Auto) Urine RBC (Auto) Ur Squamous Epith Cells Urine Bacteria Urine HCG, Qual Urine Opiates Screen Urine Methadone Screen Ur Barbiturates Screen Ur Phencyclidine Scrn Ur Amphetamines Screen U Benzodiazepines Scrn U Oth Cocaine Metabols U Cannabinoids Screen Alcohol, Quantitative RPR HIV 1&2 Antibody Screen Assessment & Plan (1) PID (acute pelvic inflammatory disease) Assessment and Plan: antibiotics Iv hydration UA Status: Acute (2) Polysubstance abuse Status: Acute (3) Suicidal ideation Assessment and Plan: psyc consult Status: Acute
[2017-07-09] MEDS: Enoxaparin 40 mg Syringe SC SCH (10:25)
[2017-07-09] MEDS: Lactobacillus Acidophilus 500 MU Cap PO SCH ×2 (10:25→17:43)
[2017-07-09 12:01] LABS: BASO % 0.2 % (0.0-2.0); EOS % 0.2 % (0.0-4.0); HEMOGLOBIN 11.2 g/dL (11.0-16.0); LYMPH # 1.7 K/uL (1.0-4.3); MEAN CORPUSCULAR HEMOGLOBIN 26.7 pg (27.0-31.0); MEAN CORPUSCULAR HGB CONC 32.6 g/dL (33.0-37.0); MEAN PLATELET VOLUME 9.8 fL (7.2-11.7); MONO # 0.5 K/uL (0.0-0.8); MONO % 3.7 % (0.0-10.0); NEUT # 12.1 K/uL (1.8-7.0); NEUT % 83.9 % (50.0-75.0); RBC 4.21 Mil/uL (3.80-5.20); RED CELL DISTRIBUTION WIDTH 14.5 % (11.5-14.5); WHITE BLOOD COUNT 14.5 K/uL (4.8-10.8)
[2017-07-09 12:18] LABS: BLOOD UREA NITROGEN 15 mg/dL (7-17); CALCIUM 8.7 mg/dl (8.6-10.4); GFR AFRICAN-AMERICAN > 60; GFR NON-AFRICAN AMERICAN > 60
--- NOTE | 2017-07-09 12:22 | PCM.PSYCH ---
Initial Psychiatric Evaluation - Initial Psychiatric Evaluation Type of Admission: Voluntary Legal Status: Capacity Chief Complaint (in patient's own words): "I'm withdrawing" History of Present Illness and Precipitating Events: The patient is seen, chart reviewed and case discussed. This is a 51-year-old single female with 2 children, homeless and unemployed. The patient's here for infection. She admits to using heroin 20 bags IV for the last 5 years. She also smokes cocaine 20 bottles sometimes, last 10 years. She drinks a pint of alcohol the last he 2 years but she denies any alcohol withdrawal. She says she is withdrawing from heroin "real bad." She also smokes cigarettes one pack per day for a year. She currently denies feeling suicidal but has depressive symptoms and sleep problems. No hallucinations or delusions elicited. She is future oriented and contracted for safety Past psych history: She was diagnosed with PTSD and depression but she doesn't remember her medications much. She had one admission with suicide attempt, "longer go." Past medical history: Hepatitis C Family psych history: Denies Current Medications: Active Medications Generic Name Dose Route Start Last Admin Trade Name Freq PRN Reason Stop Dose Admin Acetaminophen 650 mg 07/08/17 17:15 Tylenol 325mg Tab PO Q6 PRN Fever >100.4 F Enoxaparin Sodium 40 mg 07/09/17 10:00 07/09/17 10:25 Lovenox SC 40 mg DAILY ANTONI Administration Sodium Chloride 1,000 mls @ 100 mls/hr 07/08/17 17:15 07/09/17 08:34 Sodium Chloride 0.9% IV 100 mls/hr .Q10H ANTONI Administration Cefoxitin Sodium 2 gm/ Sodium 100 mls @ 50 mls/hr 07/09/17 00:00 07/09/17 08: 29 Chloride IVPB 50 mls/hr Q8H ANTONI Administration Protocol Doxycycline Hyclate 100 mg/ 100 mls @ 100 mls/hr 07/09/17 04:00 07/09/17 04: 16 Sodium Chloride IVPB 100 mls/hr Q12H ANTONI Administration Protocol Lactobacillus Acidophilus 1 cap 07/09/17 10:00 07/09/17 10:25 Bacid Acidophilus PO 1 cap BID ANTONI Administration Lorazepam 1 mg 07/09/17 09:48 Ativan IVP Q6H PRN Anxiety Pneumococcal Polyvalent Vaccine 0.5 ml 07/10/17 10:00 Pneumovax 23 Vaccine IM 07/10/17 10:01 .ONCE ONE Quetiapine Fumarate 100 mg 07/09/17 22:00 Seroquel PO HS AN[facility]I Past Psychiatric History - Past Psychiatric History Previous Treatment History: Inpatient Pertinent Medical Hx (Current Medical&Sleep Prob, Allergies): Allergies Allergy/AdvReac Type Severity Reaction Status Date / Time No Known Allergies Allergy Verified 07/08/17 14:05 No Known Home Med 05/18/17 Review of Systems - Neurological Neurological: UNREMARKABLE - Psychiatric Psychiatric: Abnormal Sleep Pattern, Depression, Difficulty Concentrating, Irritability. absent: Hallucinations, Homicidal Ideation, Suicidal Ideation Mental Status Examination - Personal Presentation Personal Presentation: Looks stated age - Affect Affect: Constricted - Motor Activity Motor Activity: Other (Restless) - Reliability in Providing Information Reliability in Providing Information: Fair - Speech Speech: Organized - Mood Mood: Depressed, Anxious - Formal Thought Process Formal Thought Process: No Impairment - Cognitive Functions Orientation: Person, Place, Situation, Time Sensorium: Alert Attention/Concentration: Easily distracted Abstract Thinking: [place] Estimate of Intelligence: Below average Judgement: Intact, as evidence by: Insight regarding need for hospitalization Memory: Recent intact, as evidence by: Ability to recall events of the day, Remote intact, as evidenced by: Abilit to recall sig. life events - Risk Risk: Withdrawal, Diminished functioning - Strength & Assets Inventory Strength & Assets Inventory: Cooperative - Limitations Limitations: Living alone, Other DSM 5 DX - DSM 5 DSM 5 Diagnosis: Opioid withdrawal Opioid use disorder, severe Cocaine use disorder, severe Alcohol use disorder, severe Major depressive disorder, recurrent, moderate PTSD by history - Recommended/Plan of Treatment Treatment Recommendations and Plan of Treatment: Taper with methadone Gabapentin for augmentation Seroquel for sleep and mood As needed medications All risks, benefits and alternatives of the meds discussed, and the pt agreed and understood. Supportive therapy and psychoeducation [facility] for abstinence Encourage MAT Refer to rehab or IOP, and self-help groups Smoking cessation with NH Nicotine patch if needed 34 min
--- NOTE | 2017-07-09 15:20 | US ---
Pelvic ultrasound History: Pelvic pain. Comparison: None available. Technique: Real-time sonography was performed through the pelvis utilizing transabdominal and transvaginal techniques. Findings: Uterus: 6.5 x 2.9 x 4.1 centimeters. Heterogeneous echotexture. Anteverted. Endometrium measures 2.7 millimeters, within normal limits. Free fluid noted within the pelvic cul-de-sac. Right ovary: 2.6 x 2.1 x 2.2 centimeters. Normal flow. Left ovary: 2.3 x 2.0 x 2.4 centimeters. Normal flow. Impression: Free fluid noted within the pelvic cul-de-sac. Otherwise unremarkable sonographic evaluation of the pelvis.
[2017-07-10] MEDS: cefOXitin 2 GM in Sodium Chloride 0.9% 100 ML IVPB SCH ×3 (00:12→17:16)
[2017-07-10] MEDS: Sodium Chloride 0.9% 1,000 ML IV SCH ×3 (00:13→14:32)
--- NOTE | 2017-07-10 05:29 | CP.PCM.PN ---
Subjective - Date & Time of Evaluation Date of Evaluation: 07/09/17 Time of Evaluation: 18:00 - Subjective Subjective: Pt seen and examined by me is feeling better, no chest pian, nausea, vomitting, abdominal pain, shortness of breath Objective - Vital Signs/Intake and Output Vital Signs (last 24 hours): Temp Pulse Resp BP Pulse Ox 97.9 F 65 20 124/78 98 07/10/17 00:00 07/10/17 00:00 07/10/17 00:00 07/10/17 00:00 07/10/17 00:00 Intake and Output: 07/09/17 07/10/17 18:59 06:59 Intake Total 1400 Balance 1400 - Medications Medications: Current Medications Acetaminophen (Tylenol 325mg Tab) 650 mg PO Q6 PRN PRN Reason: Fever >100.4 F Enoxaparin Sodium (Lovenox) 40 mg SC DAILY [facility] Last Admin: 07/09/17 10:25 Dose: 40 mg Gabapentin (Neurontin) 300 mg PO TID [facility] Last Admin: 07/09/17 17:53 Dose: 300 mg Sodium Chloride (Sodium Chloride 0.9%) 1,000 mls @ 100 mls/hr IV .Q10H [facility] Last Admin: 07/10/17 00:13 Dose: 100 mls/hr Cefoxitin Sodium 2 gm/ Sodium (Chloride) 100 mls @ 50 mls/hr IVPB Q8H [facility] PRN Reason: Protocol Last Admin: 07/10/17 00:12 Dose: 50 mls/hr Doxycycline Hyclate 100 mg/ (Sodium Chloride) 100 mls @ 100 mls/hr IVPB Q12H [facility] PRN Reason: Protocol Last Admin: 07/10/17 04:30 Dose: 100 mls/hr Lactobacillus Acidophilus (Bacid Acidophilus) 1 cap PO BID [facility] Last Admin: 07/09/17 17:43 Dose: 1 cap Lorazepam (Ativan) 1 mg IVP Q6H PRN PRN Reason: Anxiety Methadone HCl (Methadone) 20 mg PO Q24H [facility] PRN Reason: Taper Stop: 07/14/17 08:59 Pneumococcal Polyvalent Vaccine (Pneumovax 23 Vaccine) 0.5 ml IM .ONCE ONE Stop: 07/10/17 10:01 Quetiapine Fumarate (Seroquel) 100 mg PO HS [facility] Last Admin: 07/09/17 21:24 Dose: 100 mg - Labs Labs: 07/09/17 11:47 07/09/17 11:47 - Constitutional Appears: No Acute Distress - Head Exam Head Exam: ATRAUMATIC, NORMAL INSPECTION, NORMOCEPHALIC - Eye Exam Eye Exam: EOMI, Normal appearance, PERRL Pupil Exam: NORMAL ACCOMODATION, PERRL - ENT Exam ENT Exam: Mucous Membranes Moist, Normal Exam - Neck Exam Neck Exam: Full ROM, Normal Inspection. absent: Lymphadenopathy - Respiratory Exam Respiratory Exam: Clear to Ausculation Bilateral, NORMAL BREATHING PATTERN - Cardiovascular Exam Cardiovascular Exam: REGULAR RHYTHM, +S1, +S2. absent: Murmur - GI/Abdominal Exam GI & Abdominal Exam: Soft, Normal Bowel Sounds. absent: Tenderness - Back Exam Back Exam: NORMAL INSPECTION - Neurological Exam Neurological Exam: Alert, Awake, CN II-XII Intact, Normal Gait, Oriented x3 - Psychiatric Exam Psychiatric exam: Normal Affect, Normal Mood Assessment and Plan (1) PID (acute pelvic inflammatory disease) Status: Acute (2) Polysubstance abuse Status: Acute (3) Suicidal ideation Status: Acute
--- NOTE | 2017-07-10 06:27 | CP.PCM.CON ---
History of Present Illness - History of Present Illness History of Present Illness: Pt is 51yo female admitted through the ER for complaints of suicidal ideation. Pt upon admission also had complaints of pelvic pain with malodorous discharge. Pts WBC was 17.3 was admitted with diagnosis of PID. PT states that when she was admitted she had yellowish vaginal discharge with odor. PT was seen hospital day #2 and has been on IV antibiotics since admission. She now states that the odor was improved and the vaginal discharge is no longer present. Review of Systems - Review of Systems All systems: reviewed and no additional remarkable complaints except - Constitutional Constitutional: As Per HPI - EENT Eyes: As Per HPI Ears: As Per HPI Nose/Mouth/Throat: As Per HPI - Breasts Breasts: As Per HPI - Cardiovascular Cardiovascular: As Per HPI - Respiratory Respiratory: As Per HPI - Gastrointestinal Gastrointestinal: As Per HPI - Genitourinary Genitourinary: As Per HPI - Reproductive: Female Reproductive:Female: As Per HPI - Menstruation Menstruation: As Per HPI - Musculoskeletal Musculoskeletal: As Per HPI - Integumentary Integumentary: As Per HPI - Neurological Neurological: As Per HPI - Psychiatric Psychiatric: As Per HPI - Endocrine Endocrine: As Per HPI - Hematologic/Lymphatic Hematologic: As Per HPI Past Patient History - Infectious Disease Hx of Infectious Diseases: None - Tetanus Immunizations Tetanus Immunization: Unknown - Past Medical History & Family History Past Medical History?: Yes - Past Social History Smoking Status: Heavy Smoker > 10 Cigarettes Daily Occupation: Prostitute Drugs: Cocaine, Opiates - CARDIAC Hx Hypertension: No - PULMONARY Hx Tuberculosis: No - NEUROLOGICAL Hx Seizures: No - HEENT Hx HEENT Problems: No - RENAL Hx Chronic Kidney Disease: No - ENDOCRINE/METABOLIC Hx Endocrine Disorders: No - HEMATOLOGICAL/ONCOLOGICAL Hx Human Immunodeficiency Virus (HIV): No - INTEGUMENTARY Hx Dermatological Problems: No - MUSCULOSKELETAL/RHEUMATOLOGICAL Hx Falls: No - GASTROINTESTINAL Hx Gastrointestinal Disorders: No - GENITOURINARY/GYNECOLOGICAL Hx Sexually Transmitted Disorders: No - PSYCHIATRIC Hx Substance Use: Yes (opiates,cocaine) - SURGICAL HISTORY Hx Surgeries: Yes Hx Orthopedic Surgery: Yes (left ankle) - ANESTHESIA Hx Anesthesia: No Hx Anesthesia Reactions: No Hx Malignant Hyperthermia: No Has any member of the family had a problem w/ anesthesia?: No Meds Allergies/Adverse Reactions: Allergies Allergy/AdvReac Type Severity Reaction Status Date / Time No Known Allergies Allergy Verified 07/08/17 14:05 - Medications Medications: Current Medications Acetaminophen (Tylenol 325mg Tab) 650 mg PO Q6 PRN PRN Reason: Fever >100.4 F Enoxaparin Sodium (Lovenox) 40 mg SC DAILY [facility] Last Admin: 07/09/17 10:25 Dose: 40 mg Gabapentin (Neurontin) 300 mg PO TID [facility] Last Admin: 07/09/17 17:53 Dose: 300 mg Sodium Chloride (Sodium Chloride 0.9%) 1,000 mls @ 100 mls/hr IV .Q10H [facility] Last Admin: 07/10/17 00:13 Dose: 100 mls/hr Cefoxitin Sodium 2 gm/ Sodium (Chloride) 100 mls @ 50 mls/hr IVPB Q8H [facility] PRN Reason: Protocol Last Admin: 07/10/17 00:12 Dose: 50 mls/hr Doxycycline Hyclate 100 mg/ (Sodium Chloride) 100 mls @ 100 mls/hr IVPB Q12H [facility] PRN Reason: Protocol Last Admin: 07/10/17 04:30 Dose: 100 mls/hr Lactobacillus Acidophilus (Bacid Acidophilus) 1 cap PO BID [facility] Last Admin: 07/09/17 17:43 Dose: 1 cap Lorazepam (Ativan) 1 mg IVP Q6H PRN PRN Reason: Anxiety Methadone HCl (Methadone) 20 mg PO Q24H [facility] PRN Reason: Taper Stop: 07/14/17 08:59 Pneumococcal Polyvalent Vaccine (Pneumovax 23 Vaccine) 0.5 ml IM .ONCE ONE Stop: 07/10/17 10:01 Quetiapine Fumarate (Seroquel) 100 mg PO [facility] Last Admin: 07/09/17 21:24 Dose: 100 mg Physical Exam - Head Exam Head Exam: ATRAUMATIC, NORMAL INSPECTION - Eye Exam Eye Exam: EOMI, Normal appearance - ENT Exam ENT Exam: Mucous Membranes Moist - Neck Exam Neck exam: Positive for: Normal Inspection - Respiratory Exam Respiratory Exam: NORMAL BREATHING PATTERN - Cardiovascular Exam Cardiovascular Exam: REGULAR RHYTHM - Rectal Exam Rectal Exam: NORMAL INSPECTION - Exam Exam: NORMAL INSPECTION External exam: NORMAL EXTERNAL EXAM Speculum exam: NORMAL SPECULUM EXAM Bimanual exam: NORMAL BIMANUAL EXAM Additional comments: Speculum exam performed and no yellow vaginal discharge noted. NO odor noted. Bimanual exam performed and no CMT, or left and right adnexal tenderness Results - Vital Signs Recent Vital Signs: Last Vital Signs Temp 97.9 F 07/10/17 00:00 Pulse 65 07/10/17 00:00 Resp 20 07/10/17 00:00 BP 124/78 07/10/17 00:00 Pulse Ox 98 07/10/17 00:00 - Labs Result Diagrams: 07/09/17 11:47 07/09/17 11:47 Labs: Laboratory Results - last 24 hr 07/09/17 07/09/17 11:47 11:47 WBC 14.5 H RBC 4.21 Hgb 11.2 Hct 34.5 MCV 82.0 MCH 26.7 L MCHC 32.6 L RDW 14.5 Plt Count 184 MPV 9.8 Neut % (Auto) 83.9 H Lymph % (Auto) 12.0 L [place] % (Auto) 3.7 Eos % (Auto) 0.2 Baso % (Auto) 0.2 Neut # (Auto) 12.1 H Lymph # (Auto) 1.7 [place] # (Auto) 0.5 Eos # (Auto) 0.0 Baso # (Auto) 0.0 Sodium 145 Potassium 3.9 Chloride 112 H Carbon Dioxide 21 L Anion Gap 16 BUN 15 Creatinine 0.8 Est GFR ( Amer) > 60 Est GFR (Non-Af Amer) > 60 Random Glucose 83 Calcium 8.7 - Impressions Impression: ACUTE PID Assessment & Plan - Assessment and Plan (Free Text) Assessment: Pelvic pain, Acute PID 1 Plan: ) Vitals stable, Afebrile 2) PID: Pelvic sono: Normal - no TOA or pelvic abscess notes Treatment: continue current regimen: IV doxycycline & IV Cefoxitin. I would recommend to D/C IV doxycycline and switch to PO doxycycline. (Oral administration of doxycycline is generally preferred, as soon as vomiting subsides, because of the pain associated with intravenous drug administration) Pt is improving clinically and WBC decreased 17 -> 14. After 24 hours of sustained clinical improvement, PT should complete a 14-day course of treatment with doxycycline (100 mg twice daily14 day regimen as outpatient. 3) [facility] service will sign off. Pt can follow up as an oupatient in [facility].
[2017-07-10] MEDS: Lactobacillus Acidophilus 500 MU Cap PO SCH ×2 (09:40→17:15)
[2017-07-10] MEDS: Enoxaparin 40 mg Syringe SC SCH ×2 (09:41→09:45)
[2017-07-10] MEDS ORDERED: Pneumococcal 23-Valent Vaccine IM ONE (10:00)
--- NOTE | 2017-07-10 13:29 | PCM.PYCHPN ---
Psychiatric Progress Note - Psychiatric Progress Note Patient seen today, length of contact: 15 min Patient Chief Complaint: "I'm better" Problems Identified/Issues Discussed: The patient is seen, chart reviewed and case discussed. She is better than yesterday She reports that medications working. She wants to come to detox if she is to be discharged. Medication Change: Yes (Increase Seroquel) Medical Record Reviewed: Yes Mental Status Examination - Cognitive Function Orientation: Person, Place, Situation, Time Memory: Intact Attention: WNL Concentration: Poor Association: WNL Fund of Knowledge: WNL - Mood Mood: Anxious - Affect Affect: Constricted - Speech Speech: Appropriate - Formal Thought Process Formal Thought Process: No Impairment - Suicidal Ideation Suicidal Ideation: No - Homicidal Ideation Homicidal Ideation: No Goal/Treatment Plan - Goal/Treatment Plan Need for Continued Stay: Other (Medical) Progress Toward Problem(s) and Goals/Treatment Plan: Taper with methadone Gabapentin for augmentation Seroquel for sleep and mood As needed medications All risks, benefits and alternatives of the meds discussed, and the pt agreed and understood. Supportive therapy and psychoeducation RI for abstinence Encourage MAT Refer to rehab or IOP, and self-help groups Smoking cessation with RI Nicotine patch if needed
[2017-07-11] MEDS: cefOXitin 2 GM in Sodium Chloride 0.9% 100 ML IVPB SCH ×4 (00:09→23:54)
[2017-07-11] MEDS: Sodium Chloride 0.9% 1,000 ML IV SCH ×3 (03:09→15:15)
--- NOTE | 2017-07-11 05:28 | CP.PCM.PN ---
Subjective - Date & Time of Evaluation Date of Evaluation: 07/10/17 Time of Evaluation: 17:30 - Subjective Subjective: Pt is feeling better, she is afberile, no shortness of breath, no nausea, vomitting Objective - Vital Signs/Intake and Output Vital Signs (last 24 hours): Temp Pulse Resp BP Pulse Ox 98.1 F 78 20 134/89 99 07/10/17 23:52 07/10/17 23:52 07/10/17 23:52 07/10/17 23:52 07/10/17 23:52 Intake and Output: 07/10/17 07/11/17 18:59 06:59 Intake Total 1500 Balance 1500 - Medications Medications: Current Medications Acetaminophen (Tylenol 325mg Tab) 650 mg PO Q6 PRN PRN Reason: Fever >100.4 F Enoxaparin Sodium (Lovenox) 40 mg SC DAILY [facility] Last Admin: 07/10/17 09:45 Dose: Not Given Gabapentin (Neurontin) 300 mg PO TID [facility] Last Admin: 07/10/17 17:15 Dose: 300 mg Sodium Chloride (Sodium Chloride 0.9%) 1,000 mls @ 100 mls/hr IV .Q10H [facility] Last Admin: 07/11/17 03:09 Dose: 100 mls/hr Cefoxitin Sodium 2 gm/ Sodium (Chloride) 100 mls @ 50 mls/hr IVPB Q8H [facility] PRN Reason: Protocol Last Admin: 07/11/17 00:09 Dose: 50 mls/hr Doxycycline Hyclate 100 mg/ (Sodium Chloride) 100 mls @ 100 mls/hr IVPB Q12H [facility] PRN Reason: Protocol Last Admin: 07/11/17 03:08 Dose: 100 mls/hr Lactobacillus Acidophilus (Bacid Acidophilus) 1 cap PO BID [facility] Last Admin: 07/10/17 17:15 Dose: 1 cap Lorazepam (Ativan) 1 mg IVP Q6H PRN PRN Reason: Anxiety Methadone HCl (Methadone) 20 mg PO Q24H [facility] PRN Reason: Taper Stop: 07/14/17 08:59 Last Admin: 07/10/17 09:41 Dose: 20 mg Quetiapine Fumarate (Seroquel) 100 mg PO HS [facility] Last Admin: 07/10/17 21:25 Dose: 100 mg - Labs Labs: 07/09/17 11:47 07/09/17 11:47 - Constitutional Appears: No Acute Distress - Head Exam Head Exam: ATRAUMATIC, NORMAL INSPECTION, NORMOCEPHALIC - Eye Exam Eye Exam: EOMI, Normal appearance, PERRL Pupil Exam: NORMAL ACCOMODATION, PERRL - Respiratory Exam Respiratory Exam: Decreased Breath Sounds, Rales, Rhonchi - Cardiovascular Exam Cardiovascular Exam: REGULAR RHYTHM, +S1, +S2. absent: Murmur - GI/Abdominal Exam GI & Abdominal Exam: Soft, Normal Bowel Sounds. absent: Tenderness - Rectal Exam Rectal Exam: Deferred Assessment and Plan (1) PID (acute pelvic inflammatory disease) Status: Acute (2) Polysubstance abuse Status: Acute (3) Suicidal ideation Status: Acute
--- NOTE | 2017-07-11 05:50 | CP.PCM.PN ---
Subjective - Date & Time of Evaluation Date of Evaluation: 07/11/17 Time of Evaluation: 19:00 - Subjective Subjective: Pt seen and examined at bedside, is feeling better, clinically improving, no n/v , chest pain, sob Objective - Vital Signs/Intake and Output Vital Signs (last 24 hours): Temp Pulse Resp BP Pulse Ox 98.1 F 78 20 134/89 99 07/10/17 23:52 07/10/17 23:52 07/10/17 23:52 07/10/17 23:52 07/10/17 23:52 Intake and Output: 07/10/17 07/11/17 18:59 06:59 Intake Total 1500 Balance 1500 - Medications Medications: Current Medications Acetaminophen (Tylenol 325mg Tab) 650 mg PO Q6 PRN PRN Reason: Fever >100.4 F Enoxaparin Sodium (Lovenox) 40 mg SC DAILY [facility] Last Admin: 07/10/17 09:45 Dose: Not Given Gabapentin (Neurontin) 300 mg PO TID [facility] Last Admin: 07/10/17 17:15 Dose: 300 mg Sodium Chloride (Sodium Chloride 0.9%) 1,000 mls @ 100 mls/hr IV .Q10H [facility] Last Admin: 07/11/17 03:09 Dose: 100 mls/hr Cefoxitin Sodium 2 gm/ Sodium (Chloride) 100 mls @ 50 mls/hr IVPB Q8H [facility] PRN Reason: Protocol Last Admin: 07/11/17 00:09 Dose: 50 mls/hr Doxycycline Hyclate 100 mg/ (Sodium Chloride) 100 mls @ 100 mls/hr IVPB Q12H [facility] PRN Reason: Protocol Last Admin: 07/11/17 03:08 Dose: 100 mls/hr Lactobacillus Acidophilus (Bacid Acidophilus) 1 cap PO BID [facility] Last Admin: 07/10/17 17:15 Dose: 1 cap Lorazepam (Ativan) 1 mg IVP Q6H PRN PRN Reason: Anxiety Methadone HCl (Methadone) 20 mg PO Q24H [facility] PRN Reason: Taper Stop: 07/14/17 08:59 Last Admin: 07/10/17 09:41 Dose: 20 mg Quetiapine Fumarate (Seroquel) 100 mg PO HS [facility] Last Admin: 07/10/17 21:25 Dose: 100 mg - Labs Labs: 07/09/17 11:47 07/09/17 11:47 Assessment and Plan (1) PID (acute pelvic inflammatory disease) Status: Acute (2) Polysubstance abuse Status: Acute (3) Suicidal ideation Status: Acute
[2017-07-11 07:57] LABS: BASO % 0.8 % (0.0-2.0); EOS # 0.2 K/uL (0.0-0.7); EOS % 2.5 % (0.0-4.0); HEMOGLOBIN 11.7 g/dL (11.0-16.0); LYMPH # 3.1 K/uL (1.0-4.3); LYMPH % 46.7 % (20.0-40.0); MEAN CELL VOLUME 81.8 fL (81.0-99.0); MEAN CORPUSCULAR HEMOGLOBIN 26.8 pg (27.0-31.0); MEAN CORPUSCULAR HGB CONC 32.8 g/dL (33.0-37.0); MEAN PLATELET VOLUME 9.7 fL (7.2-11.7); MONO # 0.5 K/uL (0.0-0.8); MONO % 7.4 % (0.0-10.0); NEUT # 2.8 K/uL (1.8-7.0); NEUT % 42.6 % (50.0-75.0); NRBC % 0.1 % (0.0-2.0); RBC 4.37 Mil/uL (3.80-5.20); RED CELL DISTRIBUTION WIDTH 14.8 % (11.5-14.5); WHITE BLOOD COUNT 6.6 K/uL (4.8-10.8)
[2017-07-11 08:13] LABS: ALB/GLOB RATIO 0.9 (1.0-2.1); ALBUMIN 3.2 g/dL (3.5-5.0); ALT/SGPT 19 U/L (9-52); AST/SGOT 21 U/L (14-36); BLOOD UREA NITROGEN 15 mg/dL (7-17); CALCIUM 8.2 mg/dl (8.6-10.4); GFR AFRICAN-AMERICAN > 60; GFR NON-AFRICAN AMERICAN > 60
[2017-07-11] MEDS: Lactobacillus Acidophilus 500 MU Cap PO SCH ×2 (09:01→17:45)
[2017-07-11] MEDS: Enoxaparin 40 mg Syringe SC SCH ×2 (09:01→09:02)
[2017-07-11 16:24] VITALS: RESP 20
[2017-07-12] MEDS: Lactobacillus Acidophilus 500 MU Cap PO SCH ×2 (09:02→17:21)
[2017-07-12] MEDS: Enoxaparin 40 mg Syringe SC SCH (09:03)
--- NOTE | 2017-07-12 22:23 | CP.PCM.PN ---
Subjective - Date & Time of Evaluation Date of Evaluation: 07/12/17 Time of Evaluation: 18:45 - Subjective Subjective: Pt seen and examined Objective - Vital Signs/Intake and Output Vital Signs (last 24 hours): Temp Pulse Resp BP Pulse Ox 98.9 F 79 20 126/83 97 07/12/17 16:00 07/12/17 16:00 07/12/17 16:00 07/12/17 16:00 07/12/17 16:00 Intake and Output: 07/12/17 07/13/17 18:59 06:59 Intake Total 500 Balance 500 - Medications Medications: Current Medications Acetaminophen (Tylenol 325mg Tab) 650 mg PO Q6 PRN PRN Reason: Fever >100.4 F Doxycycline Hyclate (Doryx) 100 mg PO Q12H [facility] PRN Reason: Protocol Stop: 07/26/17 11:01 Last Admin: 07/12/17 11:19 Dose: 100 mg Enoxaparin Sodium (Lovenox) 40 mg SC DAILY [facility] Last Admin: 07/12/17 09:03 Dose: Not Given Gabapentin (Neurontin) 300 mg PO TID [facility] Last Admin: 07/12/17 17:21 Dose: 300 mg Lactobacillus Acidophilus (Bacid Acidophilus) 1 cap PO BID [facility] Last Admin: 07/12/17 17:21 Dose: 1 cap Lorazepam (Ativan) 1 mg IVP Q6H PRN PRN Reason: Anxiety Methadone HCl (Methadone) 10 mg PO Q24H [facility] PRN Reason: Taper Stop: 07/14/17 08:59 Last Admin: 07/12/17 09:02 Dose: 10 mg Quetiapine Fumarate (Seroquel) 100 mg PO HS [facility] Last Admin: 07/12/17 22:22 Dose: 100 mg - Labs Labs: 07/11/17 07:42 07/11/17 07:42 Assessment and Plan (1) PID (acute pelvic inflammatory disease) Status: Acute (2) Polysubstance abuse Status: Acute (3) Suicidal ideation Status: Acute
[2017-07-13 08:02] VITALS: BP 118/77; PULSE 77; TEMP 98.9; O2SAT 98
[2017-07-13] MEDS: Lactobacillus Acidophilus 500 MU Cap PO SCH (09:24)
[2017-07-13] MEDS: Enoxaparin 40 mg Syringe SC SCH ×2 (09:25→09:29)
--- NOTE | 2017-07-13 15:31 | CP.PCM.PN ---
Subjective - Date & Time of Evaluation Date of Evaluation: 07/13/17 Time of Evaluation: 15:32 - Subjective Subjective: Alert, ambulatory, denies any pain or distress. Objective - Vital Signs/Intake and Output Vital Signs (last 24 hours): Temp Pulse Resp BP Pulse Ox 98.9 F 77 20 118/77 98 07/13/17 08:02 07/13/17 08:02 07/13/17 08:02 07/13/17 08:02 07/13/17 08:02 Intake and Output: 07/13/17 07/13/17 06:59 18:59 Intake Total 600 1000 Balance 600 1000 - Medications Medications: Current Medications Acetaminophen (Tylenol 325mg Tab) 650 mg PO Q6 PRN PRN Reason: Fever >100.4 F Doxycycline Hyclate (Doryx) 100 mg PO Q12H [facility] PRN Reason: Protocol Stop: 07/26/17 11:01 Last Admin: 07/13/17 11:24 Dose: 100 mg Enoxaparin Sodium (Lovenox) 40 mg SC DAILY [facility] Last Admin: 07/13/17 09:29 Dose: Not Given Gabapentin (Neurontin) 300 mg PO TID [facility] Last Admin: 07/13/17 14:14 Dose: 300 mg Lactobacillus Acidophilus (Bacid Acidophilus) 1 cap PO BID [facility] Last Admin: 07/13/17 09:24 Dose: 1 cap Lorazepam (Ativan) 1 mg IVP Q6H PRN PRN Reason: Anxiety Methadone HCl (Methadone) 5 mg PO Q24H [facility] PRN Reason: Taper Stop: 07/14/17 08:59 Last Admin: 07/13/17 09:24 Dose: 5 mg Quetiapine Fumarate (Seroquel) 100 mg PO HS [facility] Last Admin: 07/12/17 22:22 Dose: 100 mg - Labs Labs: 07/11/17 07:42 07/11/17 07:42 Assessment and Plan - Assessment and Plan (Free Text) Assessment: Patient admitted with PID, seen and examined. Alert and orientedx3, denies any pain or distress. Cleared by psyche, discussed with DR Vicente, plan to discharge home on doxicycline po x14 days. Advised to follow up with psyche in 1 week. Prescription given for serquel 100mg hs for 2 weeks. Patient is advised to follow up in the methadone clinic, information given by social worker school.
--- NOTE | 2017-07-14 08:24 | CP.PCM.DIS ---
Provider - Provider Date of Admission: 07/08/17 16:49 Attending physician: Candido Vicente MD Time Spent in preparation of Discharge (in minutes): 56 Diagnosis - Discharge Diagnosis (1) PID (acute pelvic inflammatory disease) Status: Acute (2) Polysubstance abuse Status: Acute (3) Suicidal ideation Status: Acute Hospital Course - Lab Results Lab Results: Micro Results 07/09/17 13:55 Blood-Venous Blood Culture - Preliminary NO GROWTH AFTER 4 DAYS 07/09/17 12:45 Blood-Venous Blood Culture - Preliminary NO GROWTH AFTER 4 DAYS 07/08/17 16:10 Vaginal Gram Stain - Final 07/08/17 16:10 Vaginal Genital Culture - Final 07/09/17 14:36 Urine Urine Culture - Final No Growth (<1,000 CFU/ML) Most Recent Lab Values WBC 6.6 K/uL (4.8-10.8) D 07/11/17 07:42 RBC 4.37 Mil/uL (3.80-5.20) 07/11/17 07:42 Hgb 11.7 g/dL (11.0-16.0) 07/11/17 07:42 Hct 35.7 % (34.0-47.0) 07/11/17 07:42 MCV 81.8 fL (81.0-99.0) 07/11/17 07:42 MCH 26.8 pg (27.0-31.0) L 07/11/17 07:42 MCHC 32.8 g/dL (33.0-37.0) L 07/11/17 07:42 RDW 14.8 % (11.5-14.5) H 07/11/17 07:42 Plt Count 190 K/uL (130-400) 07/11/17 07:42 MPV 9.7 fL (7.2-11.7) 07/11/17 07:42 Neut % (Auto) 42.6 % (50.0-75.0) L 07/11/17 07:42 Lymph % (Auto) 46.7 % (20.0-40.0) H 07/11/17 07:42 [place]ferro % (Auto) 7.4 % (0.0-10.0) 07/11/17 07:42 Eos % (Auto) 2.5 % (0.0-4.0) 07/11/17 07:42 Baso % (Auto) 0.8 % (0.0-2.0) 07/11/17 07:42 Neut # (Auto) 2.8 K/uL (1.8-7.0) 07/11/17 07:42 Lymph # (Auto) 3.1 K/uL (1.0-4.3) 07/11/17 07:42 [place]ferro # (Auto) 0.5 K/uL (0.0-0.8) 07/11/17 07:42 Eos # (Auto) 0.2 K/uL (0.0-0.7) 07/11/17 07:42 Baso # (Auto) 0.0 K/uL (0.0-0.2) 07/11/17 07:42 Neutrophils % (Manual) 74 % (50-75) 07/08/17 14:15 Band Neutrophils % 20 % (0-2) H* 07/08/17 14:15 Lymphocytes % (Manual) 3 % (20-40) L 07/08/17 14:15 Monocytes % (Manual) 2 % (0-10) 07/08/17 14:15 Basophils % (Manual) 1 % (0-2) 07/08/17 14:15 Platelet Estimate Normal (NORMAL) 07/08/17 14:15 Hypochromasia (manual) Slight 07/08/17 14:15 pO2 54 mm/Hg (30-55) 07/08/17 15:25 VBG pH 7.42 (7.32-7.43) 07/08/17 15:25 VBG pCO2 45 mmHg (40-60) 07/08/17 15:25 VBG HCO3 27.8 mmol/L 07/08/17 15:25 VBG Total CO2 30.6 mmol/L (22-28) H 07/08/17 15:25 VBG O2 Sat (Calc) 93.6 % (40-65) H 07/08/17 15:25 VBG Base Excess 4.0 mmol/L (0.0-2.0) H 07/08/17 15:25 VBG Potassium 2.8 mmol/L (3.6-5.2) L 07/08/17 15:25 Sodium 140.0 mmol/l (132-148) 07/08/17 15:25 Chloride 104.0 mmol/L (98-107) 07/08/17 15:25 Glucose 143 mg/dl (65-105) H 07/08/17 15:25 Lactate 1.9 mmol/L (0.7-2.1) 07/08/17 15:25 FiO2 21.0 % 07/08/17 15:25 Sodium 142 mmol/L (132-148) 07/11/17 07:42 Potassium 3.9 mmol/L (3.6-5.2) 07/11/17 07:42 Chloride 107 mmol/L (98-107) 07/11/17 07:42 Carbon Dioxide 26 mmol/L (22-30) 07/11/17 07:42 Anion Gap 13 (10-20) 07/11/17 07:42 BUN 15 mg/dL (7-17) 07/11/17 07:42 Creatinine 0.8 mg/dL (0.7-1.2) 07/11/17 07:42 Est GFR ( Amer) > 60 07/11/17 07:42 Est GFR (Non-Af Amer) > 60 07/11/17 07:42 Random Glucose 90 mg/dL (65-105) 07/11/17 07:42 Calcium 8.2 mg/dl (8.6-10.4) L 07/11/17 07:42 Total Bilirubin 0.5 mg/dL (0.2-1.3) 07/11/17 07:42 AST 21 U/L (14-36) 07/11/17 07:42 ALT 19 U/L (9-52) 07/11/17 07:42 Alkaline Phosphatase 78 U/L (38-126) 07/11/17 07:42 Total Protein 6.6 g/dL (6.3-8.3) 07/11/17 07:42 Albumin 3.2 g/dL (3.5-5.0) L 07/11/17 07:42 Globulin 3.4 gm/dL (2.2-3.9) 07/11/17 07:42 Albumin/Globulin Ratio 0.9 (1.0-2.1) L 07/11/17 07:42 Venous Blood Potassium 2.8 mmol/L (3.6-5.2) L 07/08/17 15:25 Urine Color Yellow (YELLOW) 07/08/17 13:54 Urine Clarity Hazy (Clear) 07/08/17 13:54 Urine pH 5.0 (5.0-8.0) 07/08/17 13:54 Ur Specific Ashley 1.023 (1.003-1.030) 07/08/17 13:54 Urine Protein Negative mg/dL (NEGATIVE) 07/08/17 13:54 Urine Glucose (UA) Normal mg/dL (Normal) 07/08/17 13:54 Urine Ketones Negative mg/dL (NEGATIVE) 07/08/17 13:54 Urine Blood Negative (NEGATIVE) 07/08/17 13:54 Urine Nitrate Negative (NEGATIVE) 07/08/17 13:54 Urine Bilirubin Negative (NEGATIVE) 07/08/17 13:54 Urine Urobilinogen Normal mg/dL (0.2-1.0) 07/08/17 13:54 Ur Leukocyte Esterase 3+ Rashaun/uL (Negative) H 07/08/17 13:54 Urine WBC (Auto) 14 /hpf (0-5) H 07/08/17 13:54 Urine RBC (Auto) 7 /hpf (0-3) H 07/08/17 13:54 Ur Squamous Epith Cells 10 /hpf (0-5) H 07/08/17 13:54 Urine Bacteria Rare (<OCC) 07/08/17 13:54 Urine HCG, Qual Negative (NEGATIVE) 07/08/17 13:54 Urine Opiates Screen Positive (NEGATIVE) H 07/08/17 13:54 Urine Methadone Screen Negative (NEGATIVE) 07/08/17 13:54 Ur Barbiturates Screen Negative (NEGATIVE) 07/08/17 13:54 Ur Phencyclidine Scrn Negative (NEGATIVE) 07/08/17 13:54 Ur Amphetamines Screen Negative (NEGATIVE) 07/08/17 13:54 U Benzodiazepines Scrn Negative (NEGATIVE) 07/08/17 13:54 U Oth Cocaine Metabols Positive (NEGATIVE) H 07/08/17 13:54 U Cannabinoids Screen Negative (NEGATIVE) 07/08/17 13:54 Alcohol, Quantitative < 10 mg/dl (0-10) 07/08/17 14:15 RPR Nonreactive (NONREACTIVE) 07/08/17 14:53 C.trachomatis RNA (TMA) Not detected (Not Detected) 07/08/17 16:10 HIV 1&2 Antibody Screen Negative (NEGATIVE) 07/08/17 14:53 N.gonorrhoeae RNA (TMA) Not detected (Not Detected) 07/08/17 16:10 - Hospital Course Hospital Course: * Patient admitted with PID, seen and examined. * Alert and orientedx3, denies any pain or distress. * Cleared by psyche. Plan to discharge home on doxicycline po x14 days. Advised to follow up with psyche in 1 week. Prescription given for serquel 100mg hs for 2 weeks. Patient is advised to follow up in the methadone clinic, information given by school social worker. Discharge Exam - Head Exam Head Exam: ATRAUMATIC, NORMAL INSPECTION, NORMOCEPHALIC Discharge Plan - Discharge Medications Prescriptions: Lactobacillus Acidophilus [Bacid Acidophilus] 1 cap PO BID #20 cap Doxycycline Hyclate [Doryx] 100 mg PO Q12H #20 cap QUEtiapine [Seroquel] 100 mg PO HS #14 tab - Follow Up Plan Condition: STABLE Disposition: HOME/ ROUTINE Instructions: Quitting Smoking for Older Adults, Pelvic Inflammatory Disease ( [place]), Drug Abuse and Drug Addiction (DC), Doxycycline, Lactobacillus, Quetiapine , Polysubstance Abuse (DC) Additional Instructions: Follow up with Methadone Clinic as advised Take Doxicycline 100 mg by mouth Twice a day x 10 days mores Follow up with Psych in 1 week. Referrals: Marnie Tatum MD [Staff Provider] - Candido Vicente MD [Staff Provider] - Annita Mendiola MD [Staff Provider] -
== END 2017-07-13 15:56 | disposition home or self-care (01) | DRG 368 ==
LOC: C.ER 13:23 → C.9E 16:49 → C.3T 19:37
PROVIDERS: ADMIT Internal Medicine; ATTEND Internal Medicine
PROC: GZ3ZZZZ Medication Management (ICD-10-PCS; principal; 2017-07-09)
PROC: HZ89ZZZ Medication Management for Substance Abuse Treatment, Other Replacement Medication (ICD-10-PCS; 2017-07-09)
PROC: HZ59ZZZ Individual Psychotherapy for Substance Abuse Treatment, Supportive (ICD-10-PCS; 2017-07-09)
PROC: HZ46ZZZ Group Counseling for Substance Abuse Treatment, Psychoeducation (ICD-10-PCS; 2017-07-09)
PROC: HZ90ZZZ Pharmacotherapy for Substance Abuse Treatment, Nicotine Replacement (ICD-10-PCS; 2017-07-09)
DX: N73.0 Acute parametritis and pelvic cellulitis (principal); F33.1 Major depressive disorder, recurrent, moderate; F11.23 Opioid dependence with withdrawal; F14.20 Cocaine dependence, uncomplicated; R45.851 Suicidal ideations; F10.20 Alcohol dependence, uncomplicated; F17.210 Nicotine dependence, cigarettes, uncomplicated; F31.9 Bipolar disorder, unspecified; F43.10 Post-traumatic stress disorder, unspecified